=== PATIENT | female | born 1935 | race Caucasian/White ===

== ENCOUNTER 2016-08-20 12:55 | Inpatient (IN) | payer MEDICARE, MEDICAID ==
[2016-08-20] MEDS ORDERED: Albuterol/Ipratropium 3.0-0.5 MG/3 ML Neb Soln NEB ONE (13:11)
[2016-08-20] MEDS ORDERED: cefTRIAXone 1,000 MG in Sodium Chloride 0.9% 50 ML IV SCH ×2 (14:45→16:00)
--- NOTE | 2016-08-20 15:24 | CT ---
INDICATION: Hemoptysis. CT CHEST WITHOUT CONTRAST: Spiral 2.5-mm axial sections were obtained through the chest with sagittal and coronal reconstructions, 08/20/2016, and compared with 11/10/2013. Total Exam DLP = 602.31 mGy-cm. There are areas of consolidating infiltrate in both lower lobes at the lung base on the left and somewhat cranial to the lung base on the right, slightly more prominent consolidation is seen in the left lower lobe. Both areas may represent areas of pneumonia with some atelectasis and possibly some fibrosis also. Additionally, changes are seen in the lingula which may be on the basis of fibrosis and/or minimal patchy pneumonia and linear atelectasis. Probable fibrotic changes are suggested in the posterior upper lobes bilaterally. Areas of pleural thickening are noted with some calcification suggested, which may be on the basis of asbestosis. The heart is enlarged compared with the previous examination and is enlarged significantly at this time. Mediastinal lymphadenopathy is present and perhaps slightly more prominent than on the previous study, which would be compatible with pneumonia. The aorta is calcified partly. Aortic valve calcifications are suggested. Renal cortical scarring is noted. Gravel or cost-ci-qkssxby bile is suggested in the gallbladder. No definite bowel obstruction was seen. Calcifications are noted in the abdominal aorta and splenic artery. IMPRESSION: 1. Bilateral pneumonia with minimal pleural reaction, most prominent in the lower lobes and especially at the left lower lobe. Follow-up to clearing recommended. Areas of scarring are also suggested scattered about the lungs. This appearance may be on the basis of aspiration pneumonia. 2. ASHD with cardiomegaly with increased size of the heart compared with 2013. 3. ASD. 4. Renal cortical scarring. 5. 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 Report was given in person to Dr. Chen at 1435 hours, 08/20/2016. [facility]
[2016-08-20] MEDS: Azithromycin 500 MG in Sodium Chloride 0.9% 250 ML IV SCH (15:26)
--- NOTE | 2016-08-20 15:29 | EDM.PDOC ---
ED HISTORY OF PRESENT ILLNESS - General Stated Complaint: ABDOMINAL PAIN Time Seen by Provider: 08/20/16 13:06 Source: Reports: skilled nursing records History Limitations: Reports: Altered mental status - History of Present Illness INITIAL COMMENTS - FREE TEXT/NARRATIVE: Patient is a 80 [facility] who [facility] and her Oxygen saturations dropped to the mid 80's percentage. She was started on Oxygen and she was sent to the ED by ambulance for further evaluation. She is confused and she thought she threw up the blood rather than coughed it up. She complains of no pain. 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 - Related Data Allergies/ADRs: Allergies Allergy/AdvReac Type Severity Reaction Status Date / Time No Known Allergies Allergy Verified 05/07/15 13:29 Home Meds: Home Meds Acetaminophen [Tylenol Extra Strength] 500 mg PO BID 05/07/15 [History] Ipratropium/Albuterol Sulfate [Iprat-Albut 0.5-3(2.5) MG/3 ML] 3 ml IH BID 05/07 [History] Ipratropium/Albuterol Sulfate [Iprat-Albut 0.5-3(2.5) MG/3 ML] 3 ml IH Q4H PRN 05/07/15 [History] Acetaminophen 650 mg PO Q4HR PRN 08/20/16 [History] Past Medical History Cardiovascular History: Reports: High cholesterol, Hypertension Respiratory History: Reports: Asthma Musculoskeletal History: Reports: Osteoarthritis, Other (see below) Other Musculoskeletal History: CHRONIC SHOULDER PAIN Neurological History: Reports: Other (see below) Other Neuro History: RECORDS 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 Psychiatric History: Reports: Other (see below) Other Psychiatric History: MAJOR DEPRESSIVE DISORDER - Infectious Disease History Infectious Disease History: Reports: Other (see below) Other Infectious Disease History: HAS HX OF SEPSIS. - Past Surgical History Head Surgeries/Procedures: Reports: None HEENT Surgical History: Reports: None Cardiovascular Surgical History: Reports: None Respiratory Surgical History: Reports: None GI Surgical History: Reports: None Female Surgical History: Reports: None Endocrine Surgical History: Reports: None Neurological Surgical History: Reports: None Musculoskeletal Surgical History: Reports: None Oncologic Surgical History: Reports: None Dermatological Surgical History: Reports: None Social & Family History - Family History Other Oncologic Family History: Father had an unknown type of cancer - Tobacco Use Smoking Status *Q: Never Smoker Second Hand Smoke Exposure: No - Alcohol Use Days Per Week of Alcohol Use: 4 Number of Drinks Per Day: 1 Total Drinks Per Week: 4 - Recreational Drug Use Recreational Drug Use: No ED ROS GENERAL - Review of Systems Review Of Systems: See Below Constitutional: Reports: no symptoms HEENT: Reports: No symptoms Respiratory: Reports: Shortness of Breath, Cough, Hemoptysis Cardiovascular: Reports: No symptoms GI/Abdominal: Reports: No symptoms : Reports: no symptoms Musculoskeletal: Reports: no symptoms Skin: Reports: no symptoms Neurological: Reports: No Symptoms Hematologic/Lymphatic: Reports: no symptoms Immunologic: Reports: no symptoms ED EXAM, GENERAL - Physical Exam Exam: See Below Exam Limited By: Altered mental status General Appearance: mild distress Eye Exam: bilateral eye: EOMI, normal fundi, normal inspection, PERRL Ears: normal external exam, normal canal, hearing grossly normal, normal TMs Ear Exam: bilateral ear: auricle normal, canal normal, TM normal Nose: normal inspection, normal mucosa, no blood Throat/Mouth: Normal inspection, Normal lips, Normal teeth, Normal gums, Normal oropharynx, Normal voice, No airway compromise Head: atraumatic, normocephalic Neck: normal inspection, supple, non-tender, full range of motion Respiratory/Chest: rales (Bibasilar rales and rhonchi) Cardiovascular: normal peripheral pulses, regular rate, rhythm, no edema, no gallop, no JVD, no murmur, no rub GI/Abdominal: normal bowel sounds, soft, non tender, no organomegaly, no distention, no abnormal bruit, no mass Extremities: normal inspection Neurological: alert, confused Psychiatric: normal affect, normal mood Skin Exam: Warm, Dry, Intact Lymphatic: no adenopathy (CT scan of chest per radiology shows bibasilar pneumonia and asbestosis.) EKG INTERPRETATION EKG Date: 08/20/16 Rhythm: NSR [place]: other (Left anterior fascicular block) P-wave: present QRS: normal ST-T: normal QT: normal Comparison: NA - no prior EKG Course - Vital Signs Text/Narrative:: Uneventful ED course. She was comfortable with the Oxygen on and she responded to a Duoneb. Once the results came back, she was started on the antibiotics after blood cultures were drawn and she was accepted to Dr. Irene. Departure - Departure Time of Disposition: 15:44 Disposition: Admitted As Inpatient 67 Condition: fair Clinical Impression: CAP (community acquired pneumonia)
[2016-08-20] MEDS ORDERED: metroNIDAZOLE/Normal Saline 500 MG in Premix Bag 1 BAG IV SCH (15:30)
[2016-08-20] MEDS ORDERED: cefTRIAXone 2 GM in Sodium Chloride 0.9% 100 ML IV SCH (16:00)
[2016-08-20] MEDS: cefTRIAXone 2 GM in Sodium Chloride 0.9% 100 ML IV SCH (16:34)
[2016-08-20] MEDS: metroNIDAZOLE/Normal Saline 500 MG in Premix Bag 1 BAG IV SCH (17:28)
[2016-08-20] MEDS ORDERED: Sodium Chloride 0.9% 250 ML IV SCH (17:30)
[2016-08-20] MEDS: methylPREDNISolone Sodium Succinate 125 MG/2 ML SDV IVPUSH SCH (19:56)
[2016-08-20] MEDS: Carboxymethylcellulose Sodium 0.5% Ophth Soln 15 ML Bottle EYEBOTH SCH (19:59)
[2016-08-20] MEDS: traMADol 50 MG Tab PO SCH (20:00)
[2016-08-20] MEDS: Sodium Chloride 0.9% 1,000 ML IV SCH (20:00)
[2016-08-20] MEDS ORDERED: Albuterol/Ipratropium 3.0-0.5 MG/3 ML Neb Soln INH SCH (21:00)
[2016-08-21] MEDS: metroNIDAZOLE/Normal Saline 500 MG in Premix Bag 1 BAG IV SCH ×3 (00:04→17:13)
[2016-08-21] MEDS: methylPREDNISolone Sodium Succinate 125 MG/2 ML SDV IVPUSH SCH ×3 (03:54→19:51)
[2016-08-21] MEDS: Albuterol/Ipratropium 3.0-0.5 MG/3 ML Neb Soln INH SCH ×4 (08:49→20:26)
[2016-08-21] MEDS: Enoxaparin 40 MG/0.4 ML Syringe SUBCUT SCH (10:05)
[2016-08-21] MEDS: Carboxymethylcellulose Sodium 0.5% Ophth Soln 15 ML Bottle EYEBOTH SCH ×2 (10:06→20:26)
[2016-08-21] MEDS: FLUoxetine 10 MG Cap PO SCH (10:06)
[2016-08-21] MEDS: Metoprolol Succinate 50 MG Tab.ER PO SCH (10:07)
[2016-08-21] MEDS: traMADol 50 MG Tab PO SCH ×3 (10:09→20:25)
[2016-08-21] MEDS: Sodium Chloride 0.9% 1,000 ML IV SCH (11:35)
--- NOTE | 2016-08-21 12:35 | PN ---
DATE SEEN: 08/21/2016 SUBJECTIVE: This 80-year-old female is seen today for followup of her pneumonia and exacerbation of chronic obstructive pulmonary disease with bronchospasm along with hypoxemia, depression, hypertension, and osteoarthritis. She is somewhat better today. Her oxygen requirements have increased, but she says she is coughing more; it seems to be a bit looser and she has not had a fever. She has had no vomiting, no diarrhea, no further hemoptysis, awaiting the results of her cultures. She denies any headache or blurred vision. She says she was able to eat breakfast. No abdominal pains or other difficulties have been noted. MEDICATIONS: Reviewed. ALLERGIES: Reviewed. OBJECTIVE: GENERAL: She appears to be in no acute distress. VITAL SIGNS: Afebrile. Blood pressure 134/62, pulse is 85, weight is 212.3 pounds, and O2 saturation is 90% on 5 L. HEENT: Unchanged. Mucous membranes are pink and moist. There is no jugular venous distention. CHEST: Reveal expiratory wheezes scattered throughout both lung alex. No active rales could be heard, but it is difficult because of the other adventitial sounds. No tachypnea. CARDIOVASCULAR: Exam reveals a normal S1, S2 without murmur, rub, or gallop. ABDOMEN: Quite obese, but otherwise unremarkable without tenderness, organomegaly, or masses. EXTREMITIES: Without clubbing, just a trace edema was noted about the ankles. LABORATORY DATA: Lab today revealed a hemoglobin of 11.7. Her white count is improved to 34,300. She still has a left shift with 96 segs. No bands, 4 lymphocytes. INR was 1.1. PTT was 32.7. Platelets were 393,000. IMPRESSION: 1. Pneumonia with exacerbation of chronic obstructive pulmonary disease and bronchospasm associated with hypoxia. 2. Mild intellectual disabilities. 3. Hypertension, under good control. 4. Osteoarthritis. 5. History of depression. PLAN: We will check a urinalysis and continue her IV antibiotics along with IV steroids and aggressive nebulizer treatments to help improve bronchospasm. We will continue to follow her white count, electrolytes; and adjust from there. /[id number] WM/MODL
--- NOTE | 2016-08-21 12:47 | HP ---
ADMISSION DATE: 08/20/2016 CHIEF COMPLAINT: Marked increase in shortness of breath with cough, leukocytosis, and pneumonia on CT scan. HISTORY OF PRESENT ILLNESS: This patient is a 80-year-old female with a history of mild intellectual disability, mild depression, and remote history of asthma, who was admitted after being seen in the emergency room with the above chief complaint. Apparently, she began feeling ill yesterday [place] living, contacted their local provider, and she was started on cefdinir but they noticed no improvement. She became more congested, developed more cough, and then began coughing up some bloody sputum. They became concerned and contacted the local provider, who recommended evaluation in the emergency room. She was seen, found to have a marked leukocytosis, and a CT scan of her chest revealed bibasilar pneumonia and also possibly in the right middle lobe. For that reason, she was admitted for more aggressive therapy. The patient herself has said she has had no fever. She denies any actual chest pain. She does admit to some shortness of breath and significant dyspnea on exertion. There has been no vomiting. She has had no melena, hematochezia, hematemesis, and denies any hematuria or dysuria. No previous history of bleeding disorder. MEDICATIONS: She does take DuoNebs p.r.n. for intermittent wheezing. Her other medicines include cefdinir 300 mg b.i.d., fluoxetine 10 mg daily, metoprolol succinate 50 mg daily, and tramadol 50 mg t.i.d. for arthritis pain. She has p.r.n. guaifenesin syrup and uses Refresh eye drops b.i.d. She has some capsaicin cream that she applies to her knees t.i.d. and Tylenol p.r.n. ALLERGIES: None known. SOCIAL HISTORY: She does not smoke nor use alcohol. PAST MEDICAL HISTORY: Somewhat difficult to ascertain. The patient cannot remember much, although she said she has had bilateral cataract extractions. Asked about any other operations and she said she was not sure. Her old charts mention the possibility of a T and A as a child and an appendectomy with possible ovarian cystectomy a number of years ago. FAMILY HISTORY: Could not be obtained as she did not remember. REVIEW OF SYSTEMS: Full review of systems was discussed. Other than that mentioned above, she denies any ear pain or sore throat. She has had no headache or blurred vision. Again, no chest pain has been noted. She has had no previous history of cardiac disease. Denies any melena or hematochezia and denies any nausea or vomiting. No other GI symptoms other than her knees bothering her. She has no other complaints. PHYSICAL EXAMINATION: GENERAL: She appears to be in no acute distress. VITAL SIGNS: Afebrile. Weight was 210.4 pounds, blood pressure 109/53, pulse was 78 and regular, respirations were 22, and somewhat labored. Oxygen saturation was 93% on 3 L. HEENT: Reveals the head to be normocephalic and atraumatic. Pupils are round and reactive well to light and accommodation. Extraocular movements were intact. She has some mild exophthalmos. Intraocular lenses were noted bilaterally. Nasal passages were open without discharge. Pharynx and palate were negative. Thyroid was not enlarged. Carotid pulses strong and equal without bruits. CHEST: Revealed expiratory wheezes scattered throughout both lung alex with prolonged expiratory phase. Coarse rhonchi were noted throughout, but there were no retractions, just mild tachypnea. CARDIOVASCULAR: Revealed a normal S1 and S2 without murmur, rub, or gallop. BREASTS: Without masses or tenderness. ABDOMEN: Quite obese, but soft. No specific point tenderness. No rebound or rigidity. Bowel sounds were normal. EXTREMITIES: Without clubbing. She has a trace edema about her ankles. There is some fusiform swelling of the knees without effusion, erythema, or warmth. No significant Herendeen's or Carlos's nodes were noted. Peripheral pulses were present and equal. NEUROLOGICAL: Her speech is a bit slow and she has difficulty answering some questions as she "cannot remember." She moves all extremities for me, but she says she is too weak to stand. LABORATORY DATA: CBC revealed a hemoglobin of 11.9, hematocrit of 34.6, white count of 49,400. She had 91 segs, 6 bands, and 3 lymphocytes. Sodium 133, potassium of 4.7, CO2 of 33, creatinine 0.9, BUN of 27. Random glucose 173. Slight elevation in AST at 34, but ALT was normal as was alkaline phosphatase. Her troponin was normal at 0.03. CT scan as noted above with areas of consolidating infiltrate in both lower lobes at the lung base and on the left somewhat cranial to the left lung base and on the right slightly more prominent consolidation was noted than on the left. Mediastinal lymphadenopathy was also noted with some cardiomegaly and degenerative changes in the thoracic spine. IMPRESSION: 1. Bibasilar pneumonia with an exacerbation of her chronic obstructive pulmonary disease and bronchospasm. 2. Mild intellectual disabilities. 3. Osteoarthritis. 4. History of depression. PLAN: The patient will be admitted. Cultures have been obtained and we have already started ceftriaxone and azithromycin. I have added metronidazole in case we are dealing with an aspiration problem and we will aggressively treat with bronchodilator therapy along with steroids, watch her oxygen saturations closely and supplement as needed, and proceed from there. /[id number] /KIMBERLY
[2016-08-21] MEDS: Azithromycin 500 MG in Sodium Chloride 0.9% 250 ML IV SCH (15:31)
[2016-08-21] MEDS: cefTRIAXone 2 GM in Sodium Chloride 0.9% 100 ML IV SCH (18:15)
[2016-08-22] MEDS: metroNIDAZOLE/Normal Saline 500 MG in Premix Bag 1 BAG IV SCH ×3 (00:06→16:11)
[2016-08-22] MEDS: methylPREDNISolone Sodium Succinate 125 MG/2 ML SDV IVPUSH SCH ×3 (03:45→19:27)
[2016-08-22] MEDS: Sodium Chloride 0.9% 1,000 ML IV SCH ×2 (04:06→21:50)
[2016-08-22] MEDS: Albuterol/Ipratropium 3.0-0.5 MG/3 ML Neb Soln INH SCH ×4 (07:31→20:32)
[2016-08-22] MEDS: Metoprolol Succinate 50 MG Tab.ER PO SCH (08:17)
[2016-08-22] MEDS: FLUoxetine 10 MG Cap PO SCH (08:18)
[2016-08-22] MEDS: Enoxaparin 40 MG/0.4 ML Syringe SUBCUT SCH (08:18)
[2016-08-22] MEDS: traMADol 50 MG Tab PO SCH ×3 (08:18→20:34)
[2016-08-22] MEDS: Carboxymethylcellulose Sodium 0.5% Ophth Soln 15 ML Bottle EYEBOTH SCH ×2 (08:19→20:31)
--- NOTE | 2016-08-22 12:50 | PN ---
DATE SEEN: 08/22/2016 SUBJECTIVE: This 80-year-old female was seen today for a followup of her pneumonia and asthma. She said she feels better today. She is stronger, and she says she is hungry. She continues to cough, but it has been fairly nonproductive. She has had no vomiting, diarrhea, dysuria, or hematuria. She denies any sore throat or ear pain. No other complaints or concerns. OBJECTIVE: GENERAL: She appears to be comfortable, sitting in her wheelchair. She is afebrile. VITAL SIGNS: Blood pressure 140/68, pulse is 80 and regular, respirations were 24, oxygen saturation is 93% to 95% on 4 L. HEENT: Unremarkable, except for the exophthalmos. NECK: Thyroid was not enlarged. Carotid pulses were strong and equal without bruits. CHEST: Revealed expiratory wheezes scattered throughout both lung alex without rales or rhonchi. CARDIOVASCULAR: Revealed a normal S1 and S2. I was unable to appreciate any murmur, rub, or gallop. ABDOMEN: Soft, obese, but nontender without organomegaly or masses. Bowel sounds are normal. EXTREMITIES: Without clubbing, just a trace edema. No ulcerations or areas of breakdown. NEUROLOGIC: She was completely intact. IMPRESSION: 1. Bibasilar pneumonia with an exacerbation of her bronchospasm and resultant hypoxemia. 2. Mild intellectual disability. 3. History of depression and osteoarthritis. PLAN: At this point, we will make no changes. We will continue the IV steroids along with her antibiotic therapy and aggressive nebulizer treatments. If she continues to make progress, we may be able to switch her over to oral steroids tomorrow and oral antibiotics. Continue her nebulizer treatments and increase her activity. Follow from there. /[id number] /APRILL
[2016-08-22] MEDS: Azithromycin 500 MG in Sodium Chloride 0.9% 250 ML IV SCH (14:20)
[2016-08-22] MEDS: cefTRIAXone 2 GM in Sodium Chloride 0.9% 100 ML IV SCH (17:24)
[2016-08-22] MEDS: Sodium Chloride 0.9% 10 ML Syringe FLUSH PRN (19:30)
[2016-08-23] MEDS: metroNIDAZOLE/Normal Saline 500 MG in Premix Bag 1 BAG IV SCH ×4 (01:10→23:54)
[2016-08-23] MEDS: methylPREDNISolone Sodium Succinate 125 MG/2 ML SDV IVPUSH SCH ×2 (03:38→16:34)
[2016-08-23] MEDS: Albuterol/Ipratropium 3.0-0.5 MG/3 ML Neb Soln INH SCH ×4 (06:52→20:24)
--- NOTE | 2016-08-23 07:57 | PCM.PN ---
- General Info Date of Service: 08/23/16 Admission Dx/Problem (Free Text): The nurses report this patient has increased respiratory rate and difficulty breathing. The patient states that she's feeling better she denies shortness of breath. She states she has a productive cough. She denies chest pain, leg swelling, fevers, chills. It is noted that she's had quite a weight gain since she's been in here. - Patient Data Vitals - most recent: Last Vital Signs Temp 98.1 F 08/23/16 03:45 Pulse 80 08/23/16 03:45 Resp 18 08/23/16 03:45 BP 137/77 08/23/16 03:45 Pulse Ox 93 L 08/23/16 03:45 Weight - most recent: 222 lb 9.6 oz I&O - last 24 hours: Intake & Output 08/22/16 08/23/16 08/23/16 22:59 06:59 14:59 Intake Total 789 639 Balance 789 639 Med Orders - Current: Current Medications Albuterol/Ipratropium (Duoneb 3.0-0.5 Mg/3 Ml) 3 ml INH QIDRT [facility] Last Admin: 08/23/16 06:52 Dose: 3 ml Artificial Tears (Refresh Tears 0.5%) 0 ml EYEBOTH BID [facility] Last Admin: 08/22/16 20:31 Dose: 1 drop Enoxaparin Sodium (Lovenox) 40 mg SUBCUT DAILY [facility] Last Admin: 08/22/16 08:18 Dose: 40 mg Fluoxetine HCl (Prozac) 10 mg PO DAILY [facility] Last Admin: 08/22/16 08:18 Dose: 10 mg Azithromycin 500 mg/ Sodium (Chloride) 250 mls @ 250 mls/hr IV Q24H [facility] Last Admin: 08/22/16 14:20 Dose: 250 mls/hr Ceftriaxone Sodium 2 gm/ (Sodium Chloride) 100 mls @ 100 mls/hr IV Q24H [facility] Last Admin: 08/22/16 17:24 Dose: 100 mls/hr Metronidazole 500 mg/ Premix 100 mls @ 100 mls/hr IV Q8H [facility] Last Admin: 08/23/16 01:10 Dose: 100 mls/hr Sodium Chloride (Normal Saline) 1,000 mls @ 75 mls/hr IV ASDIRECTED [facility] Last Admin: 08/22/16 21:50 Dose: 75 mls/hr Methylprednisolone Sodium Succinate (Solu-Medrol) 125 mg IVPUSH Q8H [facility] Last Admin: 08/23/16 03:38 Dose: 125 mg Metoprolol Succinate (Toprol Xl) 50 mg PO DAILY [facility] Last Admin: 08/22/16 08:17 Dose: 50 mg Sodium Chloride (Saline Flush) 10 ml FLUSH ASDIRECTED PRN PRN Reason: Keep Vein Open Last Admin: 08/22/16 19:30 Dose: 10 ml Tramadol HCl (Ultram) 50 mg PO TID [facility] Last Admin: 08/22/16 20:34 Dose: 50 mg Discontinued Medications Albuterol/Ipratropium (Duoneb 3.0-0.5 Mg/3 Ml) 3 ml NEB ONETIME ONE Stop: 08/20/16 13:12 Last Admin: 08/20/16 13:25 Dose: 3 ml Albuterol/Ipratropium (Duoneb 3.0-0.5 Mg/3 Ml) 3 ml INH QID [facility] Last Admin: 08/20/16 21:24 Dose: 3 ml Ceftriaxone Sodium 1,000 mg/ (Sodium Chloride) 50 mls @ 100 mls/hr IV Q24H [facility] Sodium Chloride (Normal Saline) 250 mls @ 100 mls/hr IV ASDIRECTED [facility] Stop: 08/20/16 19:59 Last Admin: 08/20/16 17:28 Dose: 100 mls/hr - Exam General: alert, oriented, cooperative Neck: supple Lungs: Normal respiratory effort, Crackles, Wheezing. No: Rales, Rhonchi Cardiovascular: Regular Rate, Regular Rhythm, No Murmurs Abdomen: bowel sounds present, soft, no tenderness, no distension Extremities: no edema Psy/Mental Status: alert, normal affect, normal mood - Problem List & Annotations (1) Pneumonia SNOMED Code(s): 871911154 Code(s): J18.9 - PNEUMONIA, UNSPECIFIED ORGANISM Status: Acute Current Visit: Yes (2) Hypoxia SNOMED Code(s): 436607631, 258441699 Code(s): R09.02 - HYPOXEMIA Status: Acute Current Visit: Yes (3) Palliative care patient SNOMED Code(s): 860233444 Code(s): Z51.5 - ENCOUNTER FOR PALLIATIVE CARE Status: Acute Current Visit: Yes - Problem List Review Problem List Initiated/Reviewed/Updated: Yes - Plan Plan:: 1. DC IV fluids and saline locked IV. 2. Up in the chair. 3. 20 mg of IV Lasix x1. 4. Continue daily weights. 5. Change Solu-Medrol to every 12 hours. 6. Continue Rocephin, Zithromax and, metronidazole. 7. CBC in the a.m.
[2016-08-23] MEDS ORDERED: Furosemide 20 MG/2 ML VIAL IVPUSH ONE (08:15)
[2016-08-23] MEDS: FLUoxetine 10 MG Cap PO SCH (09:29)
[2016-08-23] MEDS: Enoxaparin 40 MG/0.4 ML Syringe SUBCUT SCH (09:29)
[2016-08-23] MEDS: Carboxymethylcellulose Sodium 0.5% Ophth Soln 15 ML Bottle EYEBOTH SCH ×2 (09:29→20:24)
[2016-08-23] MEDS: Metoprolol Succinate 50 MG Tab.ER PO SCH (09:30)
[2016-08-23] MEDS: traMADol 50 MG Tab PO SCH ×3 (09:32→20:24)
[2016-08-23] MEDS: Azithromycin 500 MG in Sodium Chloride 0.9% 250 ML IV SCH (14:09)
[2016-08-23] MEDS: Sodium Chloride 0.9% 10 ML Syringe FLUSH PRN (14:25)
[2016-08-23] MEDS: cefTRIAXone 2 GM in Sodium Chloride 0.9% 100 ML IV SCH (18:05)
[2016-08-24] MEDS: methylPREDNISolone Sodium Succinate 125 MG/2 ML SDV IVPUSH SCH (04:08)
[2016-08-24] MEDS: Albuterol/Ipratropium 3.0-0.5 MG/3 ML Neb Soln INH SCH ×4 (06:47→20:42)
[2016-08-24] MEDS: metroNIDAZOLE/Normal Saline 500 MG in Premix Bag 1 BAG IV SCH ×3 (07:58→23:51)
--- NOTE | 2016-08-24 08:16 | PCM.PN ---
- General Info Date of Service: 08/24/16 Admission Dx/Problem (Free Text): Patient states she's feeling well. She denies shortness of breath, fevers, chills, nasal congestion, sore throat, chest pain. She says she does have a cough is productive and has very little appetite. She is drinking fluids okay. - Patient Data Vitals - most recent: Last Vital Signs Temp 98.3 F 08/24/16 04:00 Pulse 82 08/24/16 04:00 Resp 20 08/24/16 04:00 BP 125/60 08/24/16 04:00 Pulse Ox 96 08/24/16 04:00 Weight - most recent: 222 lb 9.6 oz I&O - last 24 hours: Intake & Output 08/23/16 08/24/16 08/24/16 22:59 06:59 14:59 Intake Total 135 100 Balance 135 100 Lab Results last 24 hrs: Laboratory Results - last 24 hr 08/24/16 08/24/16 Range/Units 06:20 06:20 WBC 14.8 H (4.5-12.0) X10-3/uL RBC 3.90 (3.23-5.20) x10(6)uL Hgb 11.4 L (11.5-15.5) g/dL Hct 35.1 (30.0-51.3) % MCV 90.0 (80-96) fL MCH 29.2 (27.7-33.6) pg MCHC 32.4 (32.2-35.4) g/dL RDW 15.7 H (11.5-15.5) % Plt Count 378 H (125-369) X10(3)uL MPV 7.3 L (7.4-10.4) fL Add Manual Diff Yes Neutrophils % (Manual) 92 H (46-82) % Lymphocytes % (Manual) 4 L (13-37) % Monocytes % (Manual) 4 (4-12) % Sodium 138 (135-145) mmol/L Potassium 4.3 (3.5-5.3) mmol/L Chloride 100 (100-110) mmol/L Carbon Dioxide 31 H (23-29) mmol/L BUN 29 H (8-23) mg/dL Creatinine 0.7 (0.6-1.3) mg/dL Est Cr Clr Drug Dosing 53.91 mL/min Estimated GFR (MDRD) > 60 (>60) BUN/Creatinine Ratio 41.4 H (9-20) Glucose 147 H (80-116) mg/dL Calcium 8.5 L (8.6-10.2) mg/dL Total Bilirubin 0.2 (0.1-1.3) mg/dL AST 226 H D (5-27) IU/L ALT 105 H D (14-26) IU/L Alkaline Phosphatase 133 H (56-112) IU/L Total Protein 6.9 (6.0-8.0) g/dL Albumin 2.8 L (3.2-4.6) g/dL Globulin 4.1 g/dL Albumin/Globulin Ratio 0.7 Med Orders - Current: Current Medications Albuterol/Ipratropium (Duoneb 3.0-0.5 Mg/3 Ml) 3 ml INH QIDRT [facility] Last Admin: 08/24/16 06:47 Dose: 3 ml Artificial Tears (Refresh Tears 0.5%) 0 ml EYEBOTH BID [facility] Last Admin: 08/23/16 20:24 Dose: 1 drop Enoxaparin Sodium (Lovenox) 40 mg SUBCUT DAILY [facility] Last Admin: 08/23/16 09:29 Dose: 40 mg Fluoxetine HCl (Prozac) 10 mg PO DAILY [facility] Last Admin: 08/23/16 09:29 Dose: 10 mg Azithromycin 500 mg/ Sodium (Chloride) 250 mls @ 250 mls/hr IV Q24H [facility] Last Admin: 08/23/16 14:09 Dose: 250 mls/hr Ceftriaxone Sodium 2 gm/ (Sodium Chloride) 100 mls @ 100 mls/hr IV Q24H [facility] Last Admin: 08/23/16 18:05 Dose: 100 mls/hr Metronidazole 500 mg/ Premix 100 mls @ 100 mls/hr IV Q8H [facility] Last Admin: 08/24/16 07:58 Dose: 100 mls/hr Methylprednisolone Sodium Succinate (Solu-Medrol) 125 mg IVPUSH DAILY [facility] Metoprolol Succinate (Toprol Xl) 50 mg PO DAILY [facility] Last Admin: 08/23/16 09:30 Dose: 50 mg Tramadol HCl (Ultram) 50 mg PO TID [facility] Last Admin: 05/05/17 20:24 Dose: 50 mg Discontinued Medications Albuterol/Ipratropium (Duoneb 3.0-0.5 Mg/3 Ml) 3 ml NEB ONETIME ONE Stop: 08/20/16 13:12 Last Admin: 08/20/16 13:25 Dose: 3 ml Albuterol/Ipratropium (Duoneb 3.0-0.5 Mg/3 Ml) 3 ml INH QID [facility] Last Admin: 08/20/16 21:24 Dose: 3 ml Furosemide (Lasix) 20 mg IVPUSH NOW ONE Stop: 08/23/16 08:16 Last Admin: 08/23/16 09:23 Dose: 20 mg Ceftriaxone Sodium 1,000 mg/ (Sodium Chloride) 50 mls @ 100 mls/hr IV Q24H [facility] Sodium Chloride (Normal Saline) 250 mls @ 100 mls/hr IV ASDIRECTED [facility] Stop: 08/20/16 19:59 Last Admin: 08/20/16 17:28 Dose: 100 mls/hr Sodium Chloride (Normal Saline) 1,000 mls @ 75 mls/hr IV ASDIRECTED [facility] Last Admin: 08/22/16 21:50 Dose: 75 mls/hr Methylprednisolone Sodium Succinate (Solu-Medrol) 125 mg IVPUSH Q8H [facility] Last Admin: 08/23/16 03:38 Dose: 125 mg Methylprednisolone Sodium Succinate (Solu-Medrol) 125 mg IVPUSH Q12H [facility] Last Admin: 08/24/16 04:08 Dose: 125 mg Sodium Chloride (Saline Flush) 10 ml FLUSH ASDIRECTED PRN PRN Reason: Keep Vein Open Last Admin: 08/23/16 14:25 Dose: 10 ml - Exam General: alert, oriented, cooperative Neck: supple Lungs: Normal respiratory effort, Rhonchi, Wheezing Cardiovascular: Regular Rate, Regular Rhythm, No Murmurs Extremities: no edema - Problem List & Annotations (1) Pneumonia SNOMED Code(s): 620712490 Code(s): J18.9 - PNEUMONIA, UNSPECIFIED ORGANISM Status: Acute Current Visit: Yes Qualifiers: Pneumonia type: due to unspecified organism Laterality: bilateral (2) Hypoxia SNOMED Code(s): 599605534, 539228348 Code(s): R09.02 - HYPOXEMIA Status: Acute Current Visit: Yes (3) Palliative care patient SNOMED Code(s): 459332642 Code(s): Z51.5 - ENCOUNTER FOR PALLIATIVE CARE Status: Acute Current Visit: Yes (4) Elevated LFTs SNOMED Code(s): 153842091 Code(s): R94.5 - ABNORMAL RESULTS OF LIVER FUNCTION STUDIES Status: Acute Current Visit: Yes - Problem List Review Problem List Initiated/Reviewed/Updated: Yes - My Orders Last 24 Hours: My Active Orders 08/23/16 07:58 Consult to Occupational Therapy [OT Evaluation and Treatment] [CONS] Routine Consult to Physical Therapy [PT Evaluation and Treatment] [CONS] Routine 08/23/16 07:59 Up to Chair [RC] ASDIRECTED Convert IV to Saline Lock [OM.PC] Routine 08/23/16 17:48 Convert IV to Saline Lock [OM.PC] Routine 08/24/16 09:00 methylPREDNISolone Sod Succ [Solu-MEDROL] 125 mg IVPUSH DAILY - Plan Plan:: 1. continue IV antibiotics as prescribed. 2. Recheck CBC and Chem-12 in a.m. 3. LFTs are up to pursue this with any testing at this time. Most likely infectious related. 4. Decrease Solu-Medrol 125 mg to every 24 hours.
[2016-08-24] MEDS: Carboxymethylcellulose Sodium 0.5% Ophth Soln 15 ML Bottle EYEBOTH SCH ×2 (08:36→20:49)
[2016-08-24] MEDS: Enoxaparin 40 MG/0.4 ML Syringe SUBCUT SCH (08:36)
[2016-08-24] MEDS: traMADol 50 MG Tab PO SCH ×3 (08:36→20:49)
[2016-08-24] MEDS: Metoprolol Succinate 50 MG Tab.ER PO SCH (08:36)
[2016-08-24] MEDS: FLUoxetine 10 MG Cap PO SCH (08:36)
[2016-08-24] MEDS: Azithromycin 500 MG in Sodium Chloride 0.9% 250 ML IV SCH (14:31)
[2016-08-24] MEDS: cefTRIAXone 2 GM in Sodium Chloride 0.9% 100 ML IV SCH (17:19)
[2016-08-25] MEDS ORDERED: methylPREDNISolone Sodium Succinate 125 MG/2 ML SDV IVPUSH SCH (06:00)
[2016-08-25] MEDS: Albuterol/Ipratropium 3.0-0.5 MG/3 ML Neb Soln INH SCH ×4 (07:33→20:55)
[2016-08-25] MEDS: metroNIDAZOLE/Normal Saline 500 MG in Premix Bag 1 BAG IV SCH (08:13)
--- NOTE | 2016-08-25 08:45 | PCM.PN ---
- General Info Date of Service: 08/25/16 Admission Dx/Problem (Free Text): The patient has no concerns today. She denies shortness of breath, fevers, chills and states her cough is much improved. She states she feels like she's back to normal. - Patient Data Vitals - most recent: Last Vital Signs Temp 97.6 F 08/25/16 04:00 Pulse 66 08/25/16 07:33 Resp 19 08/25/16 04:00 BP 135/68 08/25/16 04:00 Pulse Ox 96 08/25/16 07:33 Weight - most recent: 222 lb 9.6 oz I&O - last 24 hours: Intake & Output 08/24/16 08/25/16 08/25/16 22:59 06:59 14:59 Intake Total 750 Balance 750 Lab Results last 24 hrs: Laboratory Results - last 24 hr 08/25/16 08/25/16 Range/Units 06:30 06:30 WBC 18.8 H (4.5-12.0) X10-3/uL RBC 3.83 (3.23-5.20) x10(6)uL Hgb 11.0 L (11.5-15.5) g/dL Hct 34.4 (30.0-51.3) % MCV 89.9 (80-96) fL MCH 28.8 (27.7-33.6) pg MCHC 32.0 L (32.2-35.4) g/dL RDW 15.5 (11.5-15.5) % Plt Count 322 (125-369) X10(3)uL MPV 7.7 (7.4-10.4) fL Add Manual Diff Yes Neutrophils % (Manual) 88 H (46-82) % Lymphocytes % (Manual) 10 L (13-37) % Monocytes % (Manual) 2 L (4-12) % Sodium 139 (135-145) mmol/L Potassium 4.5 (3.5-5.3) mmol/L Chloride 101 (100-110) mmol/L Carbon Dioxide 34 H (23-29) mmol/L BUN 27 H (8-23) mg/dL Creatinine 0.8 (0.6-1.3) mg/dL Est Cr Clr Drug Dosing 47.17 mL/min Estimated GFR (MDRD) > 60 (>60) BUN/Creatinine Ratio 33.8 H (9-20) Glucose 103 (80-116) mg/dL Calcium 8.4 L (8.6-10.2) mg/dL Total Bilirubin 0.0 L (0.1-1.3) mg/dL AST 75 H D (5-27) IU/L ALT 65 H D (14-26) IU/L Alkaline Phosphatase 107 (56-112) IU/L Total Protein 6.3 (6.0-8.0) g/dL Albumin 2.6 L (3.2-4.6) g/dL Globulin 3.7 g/dL Albumin/Globulin Ratio 0.7 Med Orders - Current: Current Medications Albuterol/Ipratropium (Duoneb 3.0-0.5 Mg/3 Ml) 3 ml INH QIDRT [facility] Last Admin: 08/25/16 07:33 Dose: 3 ml Artificial Tears (Refresh Tears 0.5%) 0 ml EYEBOTH BID [facility] Last Admin: 08/24/16 20:49 Dose: 1 drop Enoxaparin Sodium (Lovenox) 40 mg SUBCUT DAILY [facility] Last Admin: 08/24/16 08:36 Dose: 40 mg Fluoxetine HCl (Prozac) 10 mg PO DAILY [facility] Last Admin: 08/24/16 08:36 Dose: 10 mg Azithromycin 500 mg/ Sodium (Chloride) 250 mls @ 250 mls/hr IV Q24H [facility] Last Admin: 08/24/16 14:31 Dose: 250 mls/hr Ceftriaxone Sodium 2 gm/ (Sodium Chloride) 100 mls @ 100 mls/hr IV Q24H [facility] Last Admin: 08/24/16 17:19 Dose: 100 mls/hr Metronidazole 500 mg/ Premix 100 mls @ 100 mls/hr IV Q8H [facility] Last Admin: 08/25/16 08:13 Dose: 100 mls/hr Methylprednisolone Sodium Succinate (Solu-Medrol) 125 mg IVPUSH DAILY@0600 [facility] Last Admin: 08/25/16 05:18 Dose: 125 mg Metoprolol Succinate (Toprol Xl) 50 mg PO DAILY [facility] Last Admin: 08/24/16 08:36 Dose: 50 mg Tramadol HCl (Ultram) 50 mg PO TID [facility] Last Admin: 08/24/16 20:49 Dose: 50 mg Discontinued Medications Albuterol/Ipratropium (Duoneb 3.0-0.5 Mg/3 Ml) 3 ml NEB ONETIME ONE Stop: 08/20/16 13:12 Last Admin: 08/20/16 13:25 Dose: 3 ml Albuterol/Ipratropium (Duoneb 3.0-0.5 Mg/3 Ml) 3 ml INH QID [facility] Last Admin: 08/20/16 21:24 Dose: 3 ml Furosemide (Lasix) 20 mg IVPUSH NOW ONE Stop: 08/23/16 08:16 Last Admin: 08/23/16 09:23 Dose: 20 mg Ceftriaxone Sodium 1,000 mg/ (Sodium Chloride) 50 mls @ 100 mls/hr IV Q24H [facility] Sodium Chloride (Normal Saline) 250 mls @ 100 mls/hr IV ASDIRECTED [facility] Stop: 08/20/16 19:59 Last Admin: 08/20/16 17:28 Dose: 100 mls/hr Sodium Chloride (Normal Saline) 1,000 mls @ 75 mls/hr IV ASDIRECTED [facility] Last Admin: 08/22/16 21:50 Dose: 75 mls/hr Methylprednisolone Sodium Succinate (Solu-Medrol) 125 mg IVPUSH Q8H [facility] Last Admin: 08/23/16 03:38 Dose: 125 mg Methylprednisolone Sodium Succinate (Solu-Medrol) 125 mg IVPUSH Q12H [facility] Last Admin: 08/24/16 04:08 Dose: 125 mg Sodium Chloride (Saline Flush) 10 ml FLUSH ASDIRECTED PRN PRN Reason: Keep Vein Open Last Admin: 08/23/16 14:25 Dose: 10 ml - Exam General: alert, oriented, cooperative Neck: supple Lungs: Normal respiratory effort, Wheezing (Mild) Cardiovascular: Regular Rate, Regular Rhythm, No Murmurs Extremities: no edema - Problem List & Annotations (1) Pneumonia SNOMED Code(s): 878794145 Code(s): J18.9 - PNEUMONIA, UNSPECIFIED ORGANISM Status: Acute Current Visit: Yes Qualifiers: Pneumonia type: due to unspecified organism Laterality: bilateral (2) Hypoxia SNOMED Code(s): 824346891, 359156076 Code(s): R09.02 - HYPOXEMIA Status: Acute Current Visit: Yes (3) Palliative care patient SNOMED Code(s): 232216694 Code(s): Z51.5 - ENCOUNTER FOR PALLIATIVE CARE Status: Acute Current Visit: Yes (4) Elevated LFTs SNOMED Code(s): 286533512 Code(s): R94.5 - ABNORMAL RESULTS OF LIVER FUNCTION STUDIES Status: Acute Current Visit: Yes (5) COPD (chronic obstructive pulmonary disease) SNOMED Code(s): 34669057 Code(s): J44.9 - CHRONIC OBSTRUCTIVE PULMONARY DISEASE, UNSPECIFIED Status : Acute Current Visit: Yes - Problem List Review Problem List Initiated/Reviewed/Updated: Yes - My Orders Last 24 Hours: My Active Orders 08/25/16 06:00 methylPREDNISolone Sod Succ [Solu-MEDROL] 125 mg IVPUSH DAILY@0600 - Plan Plan:: 1. White blood cell count went up. Clinically she is improved. This may be due to the steroid. Her differential is improved. So by mouth antibiotics. 2. Stop Solu-Medrol and start prednisone 60 mg a day.
[2016-08-25] MEDS: FLUoxetine 10 MG Cap PO SCH (08:50)
[2016-08-25] MEDS: traMADol 50 MG Tab PO SCH ×3 (08:50→20:57)
[2016-08-25] MEDS: Carboxymethylcellulose Sodium 0.5% Ophth Soln 15 ML Bottle EYEBOTH SCH ×2 (08:50→20:55)
[2016-08-25] MEDS: Metoprolol Succinate 50 MG Tab.ER PO SCH (08:50)
[2016-08-25] MEDS: Enoxaparin 40 MG/0.4 ML Syringe SUBCUT SCH (08:51)
[2016-08-25] MEDS: predniSONE 20 MG Tab PO SCH (09:18)
[2016-08-25] MEDS: Amoxicillin/Clavulanate K 500-125 MG Tab PO SCH ×2 (09:18→16:36)
[2016-08-25] MEDS: Azithromycin 250 MG Tab PO SCH (09:18)
[2016-08-25] MEDS: metroNIDAZOLE 500 MG Tab PO SCH (16:36)
[2016-08-26] MEDS: metroNIDAZOLE 500 MG Tab PO SCH ×2 (00:19→08:37)
[2016-08-26] MEDS: Amoxicillin/Clavulanate K 500-125 MG Tab PO SCH ×2 (01:15→08:37)
[2016-08-26] MEDS: Albuterol/Ipratropium 3.0-0.5 MG/3 ML Neb Soln INH SCH ×2 (07:04→10:54)
[2016-08-26 08:27] VITALS: BP 156/84
--- NOTE | 2016-08-26 08:35 | PCM.PN ---
- General Info Date of Service: 08/26/16 Admission Dx/Problem (Free Text): Patient without complaints. She states she still is a little cough that is improving everyday. She denies chest pain, shortness of breath or leg swelling. She denies fevers or chills. - Patient Data Vitals - most recent: Last Vital Signs Temp 98.3 F 08/26/16 08:27 Pulse 74 08/26/16 07:05 Resp 20 08/26/16 08:27 BP 156/84 H 08/26/16 08:27 Pulse Ox 94 L 08/26/16 08:27 Weight - most recent: 219 lb Lab Results last 24 hrs: Laboratory Results - last 24 hr 08/26/16 08/26/16 Range/Units 06:40 06:40 WBC 17.6 H (4.5-12.0) X10-3/uL RBC 3.80 (3.23-5.20) x10(6)uL Hgb 11.0 L (11.5-15.5) g/dL Hct 33.6 (30.0-51.3) % MCV 88.4 (80-96) fL MCH 28.8 (27.7-33.6) pg MCHC 32.6 (32.2-35.4) g/dL RDW 15.2 (11.5-15.5) % Plt Count 326 (125-369) X10(3)uL MPV 7.5 (7.4-10.4) fL Neut % (Auto) 83.2 H (46-82) % Lymph % (Auto) 7.2 L (13-37) % Angelina % (Auto) 7.7 (4-12) % Eos % (Auto) 0 L (1.0-5.0) % Baso % (Auto) 2 (0-2) % Neut # (Auto) 14.6 H (1.6-8.3) # Lymph # (Auto) 1.3 (0.6-5.0) # Angelina # (Auto) 1.4 H (0.0-1.3) # Eos # (Auto) 0.0 (0.0-0.8) # Baso # (Auto) 0.3 H (0.0-0.2) # Sodium 136 (135-145) mmol/L Potassium 4.3 (3.5-5.3) mmol/L Chloride 96 L D (100-110) mmol/L Carbon Dioxide 35 H (23-29) mmol/L BUN 23 (8-23) mg/dL Creatinine 0.7 (0.6-1.3) mg/dL Est Cr Clr Drug Dosing 53.91 mL/min Estimated GFR (MDRD) > 60 (>60) BUN/Creatinine Ratio 32.9 H (9-20) Glucose 109 (80-116) mg/dL Calcium 8.4 L (8.6-10.2) mg/dL Total Bilirubin 0.3 (0.1-1.3) mg/dL AST 50 H D (5-27) IU/L ALT 52 H D (14-26) IU/L Alkaline Phosphatase 100 (56-112) IU/L Total Protein 6.2 (6.0-8.0) g/dL Albumin 2.6 L (3.2-4.6) g/dL Globulin 3.6 g/dL Albumin/Globulin Ratio 0.7 Med Orders - Current: Current Medications Albuterol/Ipratropium (Duoneb 3.0-0.5 Mg/3 Ml) 3 ml INH QIDRT [facility] Last Admin: 08/26/16 07:04 Dose: 3 ml Amoxicillin/Clavulanate Potassium (Augmentin 500 Mg\125 Mg) 1 tab PO Q8H [facility] Last Admin: 08/26/16 01:15 Dose: 1 tab Artificial Tears (Refresh Tears 0.5%) 0 ml EYEBOTH BID [facility] Last Admin: 08/25/16 20:55 Dose: 1 drop Azithromycin (Zithromax) 250 mg PO DAILY [facility] Last Admin: 08/25/16 09:18 Dose: 250 mg Enoxaparin Sodium (Lovenox) 40 mg SUBCUT DAILY [facility] Last Admin: 08/25/16 08:51 Dose: 40 mg Fluoxetine HCl (Prozac) 10 mg PO DAILY [facility] Last Admin: 08/25/16 08:50 Dose: 10 mg Metoprolol Succinate (Toprol Xl) 50 mg PO DAILY [facility] Last Admin: 08/25/16 08:50 Dose: 50 mg Metronidazole (Flagyl) 500 mg PO Q8H [facility] Last Admin: 08/26/16 00:19 Dose: 500 mg Prednisone (Prednisone) 60 mg PO DAILY [facility] Last Admin: 08/25/16 09:18 Dose: 60 mg Tramadol HCl (Ultram) 50 mg PO TID [facility] Last Admin: 08/25/16 20:57 Dose: 50 mg Discontinued Medications Albuterol/Ipratropium (Duoneb 3.0-0.5 Mg/3 Ml) 3 ml NEB ONETIME ONE Stop: 08/20/16 13:12 Last Admin: 08/20/16 13:25 Dose: 3 ml Albuterol/Ipratropium (Duoneb 3.0-0.5 Mg/3 Ml) 3 ml INH QID [facility] Last Admin: 08/20/16 21:24 Dose: 3 ml Furosemide (Lasix) 20 mg IVPUSH NOW ONE Stop: 08/23/16 08:16 Last Admin: 08/23/16 09:23 Dose: 20 mg Azithromycin 500 mg/ Sodium (Chloride) 250 mls @ 250 mls/hr IV Q24H [facility] Last Admin: 08/24/16 14:31 Dose: 250 mls/hr Ceftriaxone Sodium 1,000 mg/ (Sodium Chloride) 50 mls @ 100 mls/hr IV Q24H [facility] Ceftriaxone Sodium 2 gm/ (Sodium Chloride) 100 mls @ 100 mls/hr IV Q24H [facility] Last Admin: 08/24/16 17:19 Dose: 100 mls/hr Metronidazole 500 mg/ Premix 100 mls @ 100 mls/hr IV Q8H [facility] Last Admin: 08/25/16 08:13 Dose: 100 mls/hr Sodium Chloride (Normal Saline) 250 mls @ 100 mls/hr IV ASDIRECTED [facility] Stop: 08/20/16 19:59 Last Admin: 08/20/16 17:28 Dose: 100 mls/hr Sodium Chloride (Normal Saline) 1,000 mls @ 75 mls/hr IV ASDIRECTED [facility] Last Admin: 08/22/16 21:50 Dose: 75 mls/hr Methylprednisolone Sodium Succinate (Solu-Medrol) 125 mg IVPUSH Q8H [facility] Last Admin: 08/23/16 03:38 Dose: 125 mg Methylprednisolone Sodium Succinate (Solu-Medrol) 125 mg IVPUSH Q12H [facility] Last Admin: 08/24/16 04:08 Dose: 125 mg Methylprednisolone Sodium Succinate (Solu-Medrol) 125 mg IVPUSH DAILY@0600 [facility] Last Admin: 08/25/16 05:18 Dose: 125 mg Sodium Chloride (Saline Flush) 10 ml FLUSH ASDIRECTED PRN PRN Reason: Keep Vein Open Last Admin: 08/23/16 14:25 Dose: 10 ml - Exam General: alert, oriented, cooperative Lungs: Normal respiratory effort, Wheezing (Faint). No: Crackles, Rales, Rhonchi Abdomen: soft, no tenderness - Problem List & Annotations (1) Pneumonia SNOMED Code(s): 432421599 Code(s): J18.9 - PNEUMONIA, UNSPECIFIED ORGANISM Status: Acute Current Visit: Yes Qualifiers: Pneumonia type: due to unspecified organism Laterality: bilateral (2) Hypoxia SNOMED Code(s): 458659274, 353066528 Code(s): R09.02 - HYPOXEMIA Status: Acute Current Visit: Yes (3) Palliative care patient SNOMED Code(s): 808546894 Code(s): Z51.5 - ENCOUNTER FOR PALLIATIVE CARE Status: Acute Current Visit: Yes (4) Elevated LFTs SNOMED Code(s): 294246552 Code(s): R94.5 - ABNORMAL RESULTS OF LIVER FUNCTION STUDIES Status: Acute Current Visit: Yes (5) COPD (chronic obstructive pulmonary disease) SNOMED Code(s): 39721803 Code(s): J44.9 - CHRONIC OBSTRUCTIVE PULMONARY DISEASE, UNSPECIFIED Status : Acute Current Visit: Yes - Problem List Review Problem List Initiated/Reviewed/Updated: Yes - My Orders Last 24 Hours: My Active Orders 08/25/16 09:00 Amoxicillin/Clavulanate K [Augmentin 500 MG\125 MG] 1 tab PO Q8H Azithromycin [Zithromax] 250 mg PO DAILY predniSONE 60 mg PO DAILY 08/25/16 16:00 metroNIDAZOLE [Flagyl] 500 mg PO Q8H - Plan Plan:: 1. discharge back to [facility] by mouth antibiotics and by mouth prednisone taper.
[2016-08-26] MEDS: Enoxaparin 40 MG/0.4 ML Syringe SUBCUT SCH (08:37)
[2016-08-26] MEDS: predniSONE 20 MG Tab PO SCH (08:38)
[2016-08-26] MEDS: FLUoxetine 10 MG Cap PO SCH (08:38)
[2016-08-26] MEDS: Metoprolol Succinate 50 MG Tab.ER PO SCH (08:39)
[2016-08-26] MEDS: Carboxymethylcellulose Sodium 0.5% Ophth Soln 15 ML Bottle EYEBOTH SCH (08:39)
[2016-08-26] MEDS: Azithromycin 250 MG Tab PO SCH (08:40)
[2016-08-26] MEDS: traMADol 50 MG Tab PO SCH (08:43)
--- NOTE | 2016-08-26 08:48 | PCM.DCSUM1 ---
Discharge Summary - Hospital Course Free Text/Narrative:: Hospital course-patient was admitted and placed on Rocephin, Zithromax and metronidazole because of the possibility of aspiration. Her white count was very elevated and can't remain high although the differential improve. The patient had a productive cough of she's here. She did not complain of shortness of breath. She has some fevers that dissipated nicely. She is also put on Solu-Medrol because of wheezing and history of COPD 125 mg every 8 hours. Patient's white count was still high and became slightly down and clinically the patient improved. We slowly backed off of Solu-Medrol to have down to once a day and switch her to by mouth antibiotics. She continue nebulizer treatments. She did have some hypoxia and was on O2 nasal cannula. Blood cultures were negative. Brief History: Patient is a 80 [facility] old woman [facility] who [facility]ing [facility] blood at the [facility] and her Oxygen saturations dropped to the mid 80's percentage. She was started on Oxygen and she was sent to the ED by ambulance for further evaluation. She is confused and she thought she threw up the blood rather than coughed it up. She complains of no pain. She was found to have a bilateral lower lobe pneumonia on CT. - Discharge Data Discharge Date: 08/26/16 Discharge Disposition: DC/Tfer to [facility] Condition: Fair - Discharge Diagnosis/Problem(s) (1) Pneumonia SNOMED Code(s): 517777259 ICD Code: J18.9 - PNEUMONIA, UNSPECIFIED ORGANISM Status: Acute Current Visit: Yes Qualifiers: Pneumonia type: due to unspecified organism Laterality: bilateral (2) Hypoxia SNOMED Code(s): 614715008, 975831596 ICD Code: R09.02 - HYPOXEMIA Status: Acute Current Visit: Yes (3) Palliative care patient SNOMED Code(s): 267787484 ICD Code: Z51.5 - ENCOUNTER FOR PALLIATIVE CARE Status: Acute Current Visit: Yes (4) Elevated LFTs SNOMED Code(s): 509467204 ICD Code: R94.5 - ABNORMAL RESULTS OF LIVER FUNCTION STUDIES Status: Acute Current Visit: Yes (5) COPD (chronic obstructive pulmonary disease) SNOMED Code(s): 71759236 ICD Code: J44.9 - CHRONIC OBSTRUCTIVE PULMONARY DISEASE, UNSPECIFIED Status : Acute Current Visit: Yes - Patient Summary/Data Consults: Consultations 08/23/16 07:58 Consult to Occupational Therapy [OT Evaluation and Treatment] [CONS] Routine Please Evaluate and Treat. OT Reason for Consult: Strengthening This query below is only for informational purposes and is not editable. Admission Diagnosis/Problem: Pneumonia Consult to Physical Therapy [PT Evaluation and Treatment] [CONS] Routine Please Evaluate and Treat. PT Reason for Consult: Strengthening This query below is only for informational purposes and is not editable. Admission Diagnosis/Problem: Pneumonia - Patient Instructions Diet: Regular Diet as Tolerated Activity: As Tolerated Driving: Do Not Drive Showering/Bathing: May Shower Notify Provider of: Fever, Increased Pain, Nausea and/or Vomiting Other/Special Instructions: 1. Transferred to [facility] - Discharge Plan Prescriptions/Med Rec: Amoxicillin/Clavulanate K [Augmentin 500-125 MG] 1 tab PO TID #15 tablet Azithromycin [Zithromax] 250 mg PO DAILY #3 tablet Prednisone [IJD: predniSONE] 20 mg PO ASDIRECTED #12 tablet metroNIDAZOLE [Flagyl] 500 mg PO Q8H #15 tablet Home Medications: Home Meds Acetaminophen [Tylenol Extra Strength] 500 mg PO BID 05/07/15 [History] Ipratropium/Albuterol Sulfate [Iprat-Albut 0.5-3(2.5) MG/3 ML] 3 ml IH ASDIRECTED PRN 05/07/15 [History] Ipratropium/Albuterol Sulfate [Iprat-Albut 0.5-3(2.5) MG/3 ML] 3 ml IH QID 05/07 [History] Acetaminophen 650 mg PO Q4H PRN 08/20/16 [History] Capsaicin 1 applic TP TID 08/20/16 [History] Carboxymethylcellulose Sodium [Refresh Tears] 1 drop EYEBOTH BID 08/20/16 [ History] FLUoxetine [PROzac] 10 mg PO DAILY 08/20/16 [History] Loperamide [Imodium] 2 mg PO Q4H PRN 08/20/16 [History] Metoprolol Succinate [Toprol XL] 50 mg PO DAILY 08/20/16 [History] Nystatin 1 each PO BID PRN 08/20/16 [History] guaiFENesin [Tussin] 10 ml PO Q4H PRN 08/20/16 [History] traMADol [Ultram] 50 mg PO TID 08/20/16 [History] Amoxicillin/Clavulanate K [Augmentin 500-125 MG] 1 tab PO TID #15 tablet [Rx] Azithromycin [Zithromax] 250 mg PO DAILY #3 tablet 08/26/16 [Rx] Prednisone [IJD: predniSONE] 20 mg PO ASDIRECTED #12 tablet 08/26/16 [Rx] metroNIDAZOLE [Flagyl] 500 mg PO Q8H #15 tablet 08/26/16 [Rx] Forms: ED Department Discharge Referrals: Darren Oro MD [Primary Care Provider] - - Discharge Summary/Plan Comment DC Time >30 min.: No - Patient Data Vitals - Most Recent: Last Vital Signs Temp 98.3 F 08/26/16 08:27 Pulse 89 08/26/16 08:39 Resp 20 08/26/16 08:27 BP 156/84 H 08/26/16 08:39 Pulse Ox 94 L 08/26/16 08:27 Weight - Most Recent: 219 lb Lab Results - Last 24 hrs: Laboratory Results - last 24 hr 08/26/16 08/26/16 Range/Units 06:40 06:40 WBC 17.6 H (4.5-12.0) X10-3/uL RBC 3.80 (3.23-5.20) x10(6)uL Hgb 11.0 L (11.5-15.5) g/dL Hct 33.6 (30.0-51.3) % MCV 88.4 (80-96) fL MCH 28.8 (27.7-33.6) pg MCHC 32.6 (32.2-35.4) g/dL RDW 15.2 (11.5-15.5) % Plt Count 326 (125-369) X10(3)uL MPV 7.5 (7.4-10.4) fL Neut % (Auto) 83.2 H (46-82) % Lymph % (Auto) 7.2 L (13-37) % Gregg % (Auto) 7.7 (4-12) % Eos % (Auto) 0 L (1.0-5.0) % Baso % (Auto) 2 (0-2) % Neut # (Auto) 14.6 H (1.6-8.3) # Lymph # (Auto) 1.3 (0.6-5.0) # Gregg # (Auto) 1.4 H (0.0-1.3) # Eos # (Auto) 0.0 (0.0-0.8) # Baso # (Auto) 0.3 H (0.0-0.2) # Sodium 136 (135-145) mmol/L Potassium 4.3 (3.5-5.3) mmol/L Chloride 96 L D (100-110) mmol/L Carbon Dioxide 35 H (23-29) mmol/L BUN 23 (8-23) mg/dL Creatinine 0.7 (0.6-1.3) mg/dL Est Cr Clr Drug Dosing 53.91 mL/min Estimated GFR (MDRD) > 60 (>60) BUN/Creatinine Ratio 32.9 H (9-20) Glucose 109 (80-116) mg/dL Calcium 8.4 L (8.6-10.2) mg/dL Total Bilirubin 0.3 (0.1-1.3) mg/dL AST 50 H D (5-27) IU/L ALT 52 H D (14-26) IU/L Alkaline Phosphatase 100 (56-112) IU/L Total Protein 6.2 (6.0-8.0) g/dL Albumin 2.6 L (3.2-4.6) g/dL Globulin 3.6 g/dL Albumin/Globulin Ratio 0.7 Med Orders - Current: Current Medications Albuterol/Ipratropium (Duoneb 3.0-0.5 Mg/3 Ml) 3 ml INH QIDRT [facility] Last Admin: 08/26/16 07:04 Dose: 3 ml Amoxicillin/Clavulanate Potassium (Augmentin 500 Mg\125 Mg) 1 tab PO Q8H [facility] Last Admin: 08/26/16 08:37 Dose: 1 tab Artificial Tears (Refresh Tears 0.5%) 0 ml EYEBOTH BID [facility] Last Admin: 08/26/16 08:39 Dose: 1 drop Azithromycin (Zithromax) 250 mg PO DAILY [facility] Last Admin: 08/26/16 08:40 Dose: 250 mg Enoxaparin Sodium (Lovenox) 40 mg SUBCUT DAILY [facility] Last Admin: 08/26/16 08:37 Dose: 40 mg Fluoxetine HCl (Prozac) 10 mg PO DAILY [facility] Last Admin: 08/26/16 08:38 Dose: 10 mg Metoprolol Succinate (Toprol Xl) 50 mg PO DAILY [facility] Last Admin: 08/26/16 08:39 Dose: 50 mg Metronidazole (Flagyl) 500 mg PO Q8H [facility] Last Admin: 08/26/16 08:37 Dose: 500 mg Prednisone (Prednisone) 60 mg PO DAILY [facility] Last Admin: 08/26/16 08:38 Dose: 60 mg Tramadol HCl (Ultram) 50 mg PO TID [facility] Last Admin: 08/26/16 08:43 Dose: 50 mg Discontinued Medications Albuterol/Ipratropium (Duoneb 3.0-0.5 Mg/3 Ml) 3 ml NEB ONETIME ONE Stop: 08/20/16 13:12 Last Admin: 08/20/16 13:25 Dose: 3 ml Albuterol/Ipratropium (Duoneb 3.0-0.5 Mg/3 Ml) 3 ml INH QID [facility] Last Admin: 08/20/16 21:24 Dose: 3 ml Furosemide (Lasix) 20 mg IVPUSH NOW ONE Stop: 08/23/16 08:16 Last Admin: 08/23/16 09:23 Dose: 20 mg Azithromycin 500 mg/ Sodium (Chloride) 250 mls @ 250 mls/hr IV Q24H [facility] Last Admin: 08/24/16 14:31 Dose: 250 mls/hr Ceftriaxone Sodium 1,000 mg/ (Sodium Chloride) 50 mls @ 100 mls/hr IV Q24H [facility] Ceftriaxone Sodium 2 gm/ (Sodium Chloride) 100 mls @ 100 mls/hr IV Q24H [facility] Last Admin: 08/24/16 17:19 Dose: 100 mls/hr Metronidazole 500 mg/ Premix 100 mls @ 100 mls/hr IV Q8H [facility] Last Admin: 08/25/16 08:13 Dose: 100 mls/hr Sodium Chloride (Normal Saline) 250 mls @ 100 mls/hr IV ASDIRECTED [facility] Stop: 08/20/16 19:59 Last Admin: 08/20/16 17:28 Dose: 100 mls/hr Sodium Chloride (Normal Saline) 1,000 mls @ 75 mls/hr IV ASDIRECTED [facility] Last Admin: 08/22/16 21:50 Dose: 75 mls/hr Methylprednisolone Sodium Succinate (Solu-Medrol) 125 mg IVPUSH Q8H [facility] Last Admin: 08/23/16 03:38 Dose: 125 mg Methylprednisolone Sodium Succinate (Solu-Medrol) 125 mg IVPUSH Q12H [facility] Last Admin: 08/24/16 04:08 Dose: 125 mg Methylprednisolone Sodium Succinate (Solu-Medrol) 125 mg IVPUSH DAILY@0600 [facility] Last Admin: 08/25/16 05:18 Dose: 125 mg Sodium Chloride (Saline Flush) 10 ml FLUSH ASDIRECTED PRN PRN Reason: Keep Vein Open Last Admin: 08/23/16 14:25 Dose: 10 ml *Q Meaningful Use (DIS) - VTE *Q VTE Criteria *Q: VTE Mechanical Contraindications *Q: At Risk for Falls - Stroke *Q Stroke Criteria *Q: - AMI *Q AMI Criteria *Q:
== END 2016-08-26 11:15 | DRG 190 ==
LOC: FB.ED 12:55 → FB.MS 16:27
PROVIDERS: ADMIT Family Medicine; ATTEND Family Medicine
DX: J44.0 Chronic obstructive pulmonary disease with (acute) lower respiratory infection (principal); J69.0 Pneumonitis due to inhalation of food and vomit; J44.1 Chronic obstructive pulmonary disease with (acute) exacerbation; I10 Essential (primary) hypertension; Z66 Do not resuscitate; F70 Mild intellectual disabilities; J98.01 Acute bronchospasm; R09.02 Hypoxemia; Z51.5 Encounter for palliative care; R94.5 Abnormal results of liver function studies; F32.9 Major depressive disorder, single episode, unspecified; M19.90 Unspecified osteoarthritis, unspecified site; Z79.52 Long term (current) use of systemic steroids
CPT/HCPCS: 36415; 71250; 80053; 84484; 85025; 87040 ×2; 93005; 94664; 96365; 99285; J0456; J7050; J7620; 80048; 81001; 85027; 85610; 85730; 94640-76; 96367; 97161-GP; 97165-GO; A9270-GY; J0696; J1650; J1940; J2930; J7030; J7040

== ENCOUNTER 2018-04-23 13:16 | Inpatient (IN) | payer MEDICARE, MEDICAID ==
[2018-04-23] MEDS ORDERED: Magnesium Hydroxide 400 MG/5 ML Susp 30 ML Cup PO PRN (14:14)
[2018-04-23] MEDS ORDERED: Acetaminophen 325 MG Tab PO PRN (14:14)
[2018-04-23] MEDS ORDERED: guaiFENesin 100 MG/5 ML Soln 5 ML UD Cup PO PRN (14:14)
[2018-04-23] MEDS ORDERED: Bisacodyl 10 MG Supp RECTAL PRN (14:14)
[2018-04-23] MEDS ORDERED: Loperamide 2 MG Cap PO PRN (14:14)
[2018-04-23] MEDS: Sodium Chloride 0.9% 10 ML Syringe FLUSH PRN ×3 (14:30→20:18)
[2018-04-23] MEDS: Levofloxacin/Dextrose 5%-Water 750 MG in Premix Bag 1 BAG IV SCH (14:35)
[2018-04-23] MEDS ORDERED: Nystatin Topical Powder 15 GM Bottle TOP PRN (14:45)
[2018-04-23] MEDS: Enoxaparin 30 MG/0.3 ML Syringe SUBCUT SCH (15:16)
[2018-04-23] MEDS: Albuterol/Ipratropium 3.0-0.5 MG/3 ML Neb Soln NEB SCH ×2 (15:22→20:18)
[2018-04-23] MEDS ORDERED: Furosemide 20 MG/2 ML VIAL IVPUSH ONE (19:35)
--- NOTE | 2018-04-23 19:41 | PCM.HP ---
H&P History of Present Illness - General Date of Service: 04/23/18 Admit Problem/Dx: Admission Diagnosis/Problem Admission Diagnosis/Problem Pneumonia Source of Information: Patient, Old Records History Limitations: Reports: No Limitations - History of Present Illness Initial Comments - Free Text/Narative: Marissa is a 82-year-old female was brought in directly from [facility] because of shortness of breath, cough and fever. Chest x-ray was nondiagnostic but she had a white cell count and it was entertained that she might have pneumonia. She complains of being sick since Friday with cough and wheezing and low-grade fever. She has a history of asthma,( ?COPD), as well as hypertension and depression that are previously stable. She denies any chest pain but complains of leg swelling and redness of both feet. Marissa stays at home alone. She has mild cognitive dysfunction making history taking difficult. - Related Data Allergies/Adverse Reactions: Allergies Allergy/AdvReac Type Severity Reaction Status Date / Time No Known Allergies Allergy Verified 04/23/18 13:49 Home Medications: Home Meds Acetaminophen [Tylenol Extra Strength] 500 mg PO BID 05/07/15 [History] Ipratropium/Albuterol Sulfate [Iprat-Albut 0.5-3(2.5) MG/3 ML] 3 ml IH ASDIRECTED PRN 05/07/15 [History] Acetaminophen 650 mg PO Q4H PRN 08/20/16 [History] Carboxymethylcellulose Sodium [Refresh Tears] 1 drop EYEBOTH BID 08/20/16 [ History] FLUoxetine [PROzac] 10 mg PO DAILY 08/20/16 [History] Loperamide [Imodium] 2 mg PO Q4H PRN 08/20/16 [History] Metoprolol Succinate [Toprol XL] 50 mg PO DAILY 08/20/16 [History] Nystatin 1 each PO BID PRN 08/20/16 [History] guaiFENesin [Tussin] 10 ml PO Q4H PRN 08/20/16 [History] traMADol [Ultram] 50 mg PO TID 08/20/16 [History] Bisacodyl [Dulcolax] 10 mg RC DAILY PRN 04/23/18 [History] Capsaicin [Zostrix 0.025% Crm] 1 applic TP TID 04/23/18 [History] Lisinopril 10 mg PO DAILY 04/23/18 [History] Magnesium Hydroxide [Milk of Magnesia] 30 ml PO DAILY PRN 04/23/18 [History] Sennosides/Docusate Sodium [Senna-S] 2 tab PO DAILY 04/23/18 [History] Past Medical History Cardiovascular History: Reports: High Cholesterol, Hypertension, Syncope Other Cardiovascular History: Hyperlipidemia Respiratory History: Reports: Asthma, COPD, Pneumonia, Recurrent, SOB Genitourinary History: Reports: Urinary Incontinence Musculoskeletal History: Reports: Osteoarthritis Other Musculoskeletal History: CHRONIC SHOULDER PAIN, abnormality of gait, nonambulatory Neurological History: Reports: Other (See Below) Other Neuro History: Moderate intellectual disabilities Psychiatric History: Reports: Depression, Other (See Below) Other Psychiatric History: Moderate intellectual disabilities Hematologic History: Reports: Anemia Immunologic History: Reports: Other (See Below) Other Immunologic History: hx of sepsis Oncologic (Cancer) History: Reports: Other (See Below) Other Oncologic History: Basal cell carcinoma of left forehead - Infectious Disease History Infectious Disease History: Reports: Other (See Below) Other Infectious Disease History: HAS HX OF SEPSIS. - Past Surgical History Head Surgeries/Procedures: Reports: None HEENT Surgical History: Reports: None GI Surgical History: Reports: None Endocrine Surgical History: Reports: None Oncologic Surgical History: Reports: None Dermatological Surgical History: Reports: None Social & Family History - Family History Other Oncologic Family History: Father had an unknown type of cancer - Tobacco Use Smoking Status *Q: Never Smoker Second Hand Smoke Exposure: No - Caffeine Use Caffeine Use: Reports: Coffee - Recreational Drug Use Recreational Drug Use: No H&P Review of Systems - Review of Systems: Review Of Systems: ROS reveals no pertinent complaints other than HPI. Exam - Exam Exam: See Below - Vital Signs Vital Signs: Last Vital Signs Temp 98.3 F 04/23/18 16:10 Pulse 87 04/23/18 16:10 Resp 22 H 04/23/18 16:10 BP 141/80 H 04/23/18 16:10 Pulse Ox 92 L 04/23/18 16:10 Weight: 106.821 kg - Exam Quality Assessment: Supplemental Oxygen General: Alert, Oriented HEENT: PERRLA, Conjunctiva Clear Neck: Supple, Trachea Midline, +2 Carotid Pulse wo Bruit. No: JVD Lungs: Decreased Breath Sounds, Rhonchi, Wheezing Cardiovascular: Regular Rate GI/Abdominal Exam: Normal Bowel Sounds (Female) Exam: Deferred Rectal (Female) Exam: Deferred Back Exam: Normal Inspection Extremities: Pedal Edema, Redness Skin: Warm Neurological: Cranial Nerves Intact Neuro Extensive - Mental Status: Oriented x3 Neuro Extensive - Motor, Sensory, Reflexes: CN II-XII Intact Psychiatric: Alert, Normal Affect - Patient Data Lab Results Last 24 hrs: Laboratory Results - last 24 hr 04/23/18 Range/Units 14:50 NT-Pro-B Natriuret Pep 1499 H* (<=450) pg/mL EKG INTERPRETATION Rhythm: A-Flutter - Problem List (1) CAP (community acquired pneumonia) SNOMED Code(s): 992746969 ICD Code: J18.9 - PNEUMONIA, UNSPECIFIED ORGANISM Status: Acute Current Visit: No (2) Asthma SNOMED Code(s): 124426962 ICD Code: J45.909 - UNSPECIFIED ASTHMA, UNCOMPLICATED Status: Acute Current Visit: Yes Qualifiers: Asthma severity: moderate (3) Atrial flutter SNOMED Code(s): 6513920 ICD Code: I48.92 - UNSPECIFIED ATRIAL FLUTTER Status: Acute Current Visit : Yes (4) HTN (hypertension) SNOMED Code(s): 66912443 ICD Code: I10 - ESSENTIAL (PRIMARY) HYPERTENSION Status: Acute Current Visit: Yes Qualifiers: Hypertension type: essential hypertension Qualified Code(s): I10 - Essential (primary) hypertension (5) MDD (major depressive disorder) SNOMED Code(s): 219190398 ICD Code: F32.9 - MAJOR DEPRESSIVE DISORDER, SINGLE EPISODE, UNSPECIFIED Status: Chronic Current Visit: Yes Qualifiers: Major depression recurrence: recurrent Active/Remission status: currently active (6) Palliative care patient SNOMED Code(s): 951701135 ICD Code: Z51.5 - ENCOUNTER FOR PALLIATIVE CARE Status: Acute Current Visit: Yes (7) Edema SNOMED Code(s): 583149040, 821249737 ICD Code: R60.9 - EDEMA, UNSPECIFIED Status: Acute Current Visit: Yes Qualifiers: Edema type: unspecified Qualified Code(s): R60.9 - Edema, unspecified (8) Moderate major depression SNOMED Code(s): 813473 ICD Code: F32.1 - MAJOR DEPRESSIVE DISORDER, SINGLE EPISODE, MODERATE Status: Chronic Current Visit: No Problem List Initiated/Reviewed/Updated: Yes Orders Last 24hrs: Active Orders 24 hr Category Date Time Status Patient Status [ADT] Routine ADT 04/23/18 14:11 Active Height and Weight [RC] 06 Care 04/23/18 14:11 Active Intake and Output [RC] 06,14,22 Care 04/23/18 14:12 Active Oxygen Therapy [RC] PRN Care 04/23/18 14:11 Active RT Aerosol Therapy [RC] ASDIRECTED Care 04/23/18 14:13 Active VTE/DVT Education [RC] Per Unit Routine Care 04/23/18 14:11 Active Vital Signs [RC] 00,04,08,12,16,20 Care 04/23/18 14:11 Active Regular Diet [DIET] Diet 04/23/18 Breakfast Active Echo Comp wo Cont [US] Timed Exams 04/24/18 08:00 Ordered CBC WITH AUTO DIFF [HEME] AM Lab 04/24/18 05:11 Ordered COMPREHENSIVE METABOLIC PN,CMP [CHEM] AM Lab 04/24/18 05:11 Ordered CULTURE BLOOD [BC] Urgent Lab 04/23/18 14:50 Received CULTURE BLOOD [BC] Urgent Lab 04/23/18 14:55 Received TROPONIN I [CHEM] AM Lab 04/24/18 05:11 Ordered Acetaminophen [Tylenol Extra Strength] Med 04/23/18 21:00 Active 500 mg PO BID Acetaminophen [Tylenol] Med 04/23/18 14:14 Active 650 mg PO Q4H PRN Albuterol/Ipratropium [DuoNeb 3.0-0.5 MG/3 ML] Med 04/23/18 16:00 Active 3 ml NEB QIDRT Bisacodyl [Dulcolax] Med 04/23/18 14:14 Active 10 mg RECTAL DAILY PRN Carboxymethylcellulose Sodium [Refresh Tears 0.5%] Med 04/23/18 21:00 Active 0 ml EYEBOTH BID Docusate Sodium/Sennosides [Senna Plus] Med 04/24/18 09:00 Active 2 tab PO DAILY Enoxaparin [Lovenox] Med 04/23/18 14:15 Active 30 mg SUBCUT Q24H FLUoxetine [PROzac] Med 04/24/18 09:00 Active 10 mg PO DAILY Furosemide [Lasix] Med 04/23/18 19:35 Once 20 mg IVPUSH NOW ONE Levofloxacin/Dextrose 5%-Water [Levaquin in D5W 750 MG/ Med 04/23/18 14:15 Active 150 ML] 750 mg Premix Bag 1 bag IV Q24H Lisinopril [Prinivil] Med 04/24/18 09:00 Active 10 mg PO DAILY Loperamide [Imodium] Med 04/23/18 14:14 Active 2 mg PO Q4H PRN Magnesium Hydroxide [Milk of Magnesia] Med 04/23/18 14:14 Active 30 ml PO DAILY PRN Metoprolol Succinate [Toprol XL] Med 04/24/18 09:00 Active 50 mg PO DAILY Nystatin [Nystop] Med 04/23/18 14:45 Active 0 gm TOP BID PRN Sodium Chloride 0.9% [Saline Flush] Med 04/23/18 14:11 Active 10 ml FLUSH ASDIRECTED PRN guaiFENesin [Robitussin] Med 04/23/18 14:14 Active 200 mg PO Q4H PRN methylPREDNISolone Sod Succ [Solu-MEDROL] Med 04/23/18 19:45 Ordered 125 mg IVPUSH Q8H traMADol [Ultram] Med 04/23/18 21:00 Active 50 mg PO TID Blood Culture x2 Reflex Set [OM.PC] Urgent Oth 04/23/18 14:11 Ordered Peripheral IV Insertion Adult [OM.PC] Routine Oth 04/23/18 14:11 Ordered Resuscitation Status Routine Resus Stat 04/23/18 14:11 Ordered EKG 12 Lead [EK] AM Ther 04/24/18 05:11 Ordered Medication Orders Acetaminophen (Tylenol Extra Strength) 500 mg PO BID [place] Acetaminophen (Tylenol) 650 mg PO Q4H PRN PRN Reason: Pain Albuterol/Ipratropium (Duoneb 3.0-0.5 Mg/3 Ml) 3 ml NEB QIDRT [facility] Last Admin: 04/23/18 15:22 Dose: 3 ml Artificial Tears (Refresh Tears 0.5%) 0 ml EYEBOTH BID [facility] Bisacodyl (Dulcolax) 10 mg RECTAL DAILY PRN PRN Reason: Constipation Enoxaparin Sodium (Lovenox) 30 mg SUBCUT Q24H [facility] Last Admin: 04/23/18 15:16 Dose: 30 mg Fluoxetine HCl (Prozac) 10 mg PO DAILY [facility] Furosemide (Lasix) 20 mg IVPUSH NOW ONE Stop: 04/23/18 19:36 Guaifenesin (Robitussin) 200 mg PO Q4H PRN PRN Reason: Cough Levofloxacin/Dextrose 750 mg/ (Premix) 150 mls @ 100 mls/hr IV Q24H [facility] Last Admin: 04/23/18 14:35 Dose: 100 mls/hr Lisinopril (Prinivil) 10 mg PO DAILY [facility] Loperamide HCl (Imodium) 2 mg PO Q4H PRN PRN Reason: Diarrhea Magnesium Hydroxide (Milk Of Magnesia) 30 ml PO DAILY PRN PRN Reason: Constipation Methylprednisolone Sodium Succinate (Solu-Medrol) 125 mg IVPUSH Q8H [facility] Metoprolol Succinate (Toprol Xl) 50 mg PO DAILY [facility] Nystatin (Nystop) 0 gm TOP BID PRN PRN Reason: YEAST Senna/Docusate Sodium (Senna Plus) 2 tab PO DAILY [facility] Sodium Chloride (Saline Flush) 10 ml FLUSH ASDIRECTED PRN PRN Reason: Keep Vein Open Last Admin: 04/23/18 16:27 Dose: 10 ml Admin: 04/23/18 14:30 Dose: 10 ml Tramadol HCl (Ultram) 50 mg PO TID [facility] Assessment/Plan Comment:: I have chosen Levaquin, at a dose of 750 mg daily. I will give her a one-time dose of Lasix. An echocardiogram will be done tomorrow. Blood cultures have been sent, and I believe she will probably need physical and occupational therapy later. I'll give him Solu-Medrol and SVNs for asthma exacerbation. My understanding that FLU A and B was negative in the clinic, and we will also be waiting for the official report of chest x-ray from [facility]
[2018-04-23] MEDS: methylPREDNISolone Sodium Succinate 125 MG/2 ML SDV IVPUSH SCH (20:17)
[2018-04-23] MEDS: Acetaminophen 500 MG Tab PO SCH (20:18)
[2018-04-23] MEDS: traMADol 50 MG Tab PO SCH (20:23)
[2018-04-23] MEDS: Carboxymethylcellulose Sodium 0.5% Ophth Soln 15 ML Bottle EYEBOTH SCH (20:24)
[2018-04-24] MEDS: methylPREDNISolone Sodium Succinate 125 MG/2 ML SDV IVPUSH SCH ×3 (03:38→20:58)
[2018-04-24] MEDS: Sodium Chloride 0.9% 10 ML Syringe FLUSH PRN ×4 (03:39→20:58)
[2018-04-24] MEDS: Albuterol/Ipratropium 3.0-0.5 MG/3 ML Neb Soln NEB SCH ×5 (04:32→20:52)
[2018-04-24] MEDS: FLUoxetine 10 MG Cap PO SCH (08:49)
[2018-04-24] MEDS: Carboxymethylcellulose Sodium 0.5% Ophth Soln 15 ML Bottle EYEBOTH SCH ×2 (08:49→20:50)
[2018-04-24] MEDS: Lisinopril 10 MG Tab PO SCH (08:49)
[2018-04-24] MEDS: Acetaminophen 500 MG Tab PO SCH ×2 (08:50→20:50)
[2018-04-24] MEDS: traMADol 50 MG Tab PO SCH ×3 (08:50→21:05)
--- NOTE | 2018-04-24 10:53 | PN ---
DATE SEEN: 04/24/2018 HISTORY: Ms. Salas is an 82-year-old resident of [facility] with a history of mild mental retardation, chronic congestive heart failure, COPD with asthma, osteoarthritis, and depression. She was admitted from the clinic at [facility] because of shortness of breath and suspicion for pneumonia. The patient is not able to give a detailed history. However, does state that she has had some breathing problems and they are improved this morning. The patient is examined in her hospital bed and is deemed to be a fairly poor historian. PHYSICAL EXAMINATION: GENERAL: She is awake and alert. She is in good spirits. She answers questions easily. VITAL SIGNS: Blood pressure 140/73, pulse 92 and regular, respirations 22, O2 saturation 92% on 1.5 L of nasal cannula oxygen, temperature 97.6. SKIN: Anicteric. Warm, dry. There is no rash. No bruising. No sign of trauma. HEENT: Shows her mouth to be dry. LUNGS: Expiratory wheezes bilaterally. She has very poor breath sounds. There are rales at both bases. HEART: Regular. No murmur or gallop is heard. ABDOMEN: Obese, soft. Normal bowel sounds. Nontender. EXTREMITIES: Show pronation deformities of both ankles, leathery thickened skin of the lower legs and feet, 2+ minimally pitting edema to the mid tibias and generalized extremity weakness. The patient does not walk and relies on a wheelchair. LABORATORY DATA: White count 19,400, hemoglobin 13.6. Electrolytes normal. BUN 16, creatinine 0.9, glucose 173. BNP 1499. Chest x-ray, not currently available to me. ASSESSMENT: An 82-year-old woman with: 1. Likely bilateral pneumonia. 2. Acute on chronic congestive heart failure. 3. Mental retardation. 4. Depression. 5. Asthma with a history of chronic obstructive pulmonary disease. PLAN: We will continue to diurese her. Continue her current Levaquin antibiotic. We will switch her from IV methylprednisolone to oral steroid. Repeat chest x-ray in a.m. I anticipate another 48 to 72 hours of acute hospital stay with plans to return to [facility] upon discharge. We will continue to provide palliative care measures for her underlying COPD, mental retardation, depression, and longstanding immobility. /[id number] JOSELO/KIMBERLY
[2018-04-24] MEDS: Metoprolol Succinate 50 MG Tab.ER PO SCH (11:14)
[2018-04-24] MEDS: Furosemide 40 MG Tab PO SCH ×2 (11:16→17:32)
[2018-04-24] MEDS: Enoxaparin 30 MG/0.3 ML Syringe SUBCUT SCH (13:55)
[2018-04-24] MEDS: Levofloxacin/Dextrose 5%-Water 750 MG in Premix Bag 1 BAG IV SCH (14:07)
[2018-04-25] MEDS: Sodium Chloride 0.9% 10 ML Syringe FLUSH PRN (03:11)
[2018-04-25] MEDS: methylPREDNISolone Sodium Succinate 125 MG/2 ML SDV IVPUSH SCH (03:11)
[2018-04-25] MEDS: Albuterol/Ipratropium 3.0-0.5 MG/3 ML Neb Soln NEB SCH ×4 (06:42→21:24)
[2018-04-25] MEDS: Furosemide 40 MG Tab PO SCH ×2 (08:58→14:21)
[2018-04-25] MEDS: FLUoxetine 10 MG Cap PO SCH (08:59)
[2018-04-25] MEDS: Carboxymethylcellulose Sodium 0.5% Ophth Soln 15 ML Bottle EYEBOTH SCH ×2 (08:59→21:25)
[2018-04-25] MEDS: Lisinopril 10 MG Tab PO SCH (08:59)
[2018-04-25] MEDS ORDERED: predniSONE 10 MG Tab PO SCH (09:00)
[2018-04-25] MEDS: Acetaminophen 500 MG Tab PO SCH ×2 (09:00→21:25)
[2018-04-25] MEDS: Metoprolol Succinate 50 MG Tab.ER PO SCH (09:00)
[2018-04-25] MEDS: traMADol 50 MG Tab PO SCH ×3 (09:06→21:25)
[2018-04-25] MEDS: Amoxicillin/Clavulanate K 875-125 MG Tab PO SCH ×2 (09:07→21:24)
--- NOTE | 2018-04-25 09:46 | PN ---
DATE SEEN: 04/25/2018 HISTORY: Ms. Salas is an 82-year-old resident of [facility] who was admitted on 04/23/2018 because of increasing dyspnea and cough. She was seen in [facility] and admitted because of the pneumonia. On admission, she was wheezing, short of breath. She had rhonchi with decreased breath sounds and required oxygen. The patient was started on IV Levaquin, IV steroid, and respiratory therapy treatments. She has been stable. PHYSICAL EXAMINATION: GENERAL: She is alert, comfortable, and is able to answer questions appropriately. She does have mild cognitive deficits. VITAL SIGNS: Blood pressure 156/90, pulse 100 and regular, respirations 18, O2 saturation 90% on 2 L nasal cannula oxygen, temp 97.8. Weight 230 pounds, this is down from 235 pounds on admission. HEENT: Showed her mouth to be dry. LUNGS: Expiratory wheezes bilaterally. There are diminished breath sounds and coarse rales at the right base. HEART: Regular without murmur or gallop heard. ABDOMEN: Obese, soft, and nontender. EXTREMITIES: Showed 1+ pitting edema to the lower tibias. LABORATORY DATA: White count yesterday 19.4 with normal electrolytes, elevated glucose. Troponin less than 0.17. BNP 1,499. ASSESSMENT: 1. Right lower lobe pneumonia. 2. Asthma or reactive airways disease. 3. Congestive heart failure. 4. Chronic essential hypertension. 5. Depression. 6. Mild cognitive deficits. PLAN: We will continue her IV Levaquin. Add oral Augmentin today. Continue her respiratory therapy treatments. I will convert her from IV to oral steroid and recheck chest x-ray as well as labs tomorrow morning. We will continue to provide palliative care measures for her underlying congestive heart failure, respiratory difficulty, ambulatory difficulties, and her cognitive deficits. /[id number] JOSELO/APRILL
[2018-04-25] MEDS: Enoxaparin 30 MG/0.3 ML Syringe SUBCUT SCH (14:21)
[2018-04-26] MEDS: Albuterol/Ipratropium 3.0-0.5 MG/3 ML Neb Soln NEB SCH ×4 (07:04→20:29)
[2018-04-26] MEDS: predniSONE 10 MG Tab PO SCH ×2 (09:09→20:29)
[2018-04-26] MEDS: Furosemide 40 MG Tab PO SCH ×2 (09:09→13:46)
[2018-04-26] MEDS: Amoxicillin/Clavulanate K 875-125 MG Tab PO SCH ×2 (09:09→20:29)
[2018-04-26] MEDS: FLUoxetine 10 MG Cap PO SCH (09:10)
[2018-04-26] MEDS: Lisinopril 10 MG Tab PO SCH (09:10)
[2018-04-26] MEDS: Carboxymethylcellulose Sodium 0.5% Ophth Soln 15 ML Bottle EYEBOTH SCH ×2 (09:10→20:29)
[2018-04-26] MEDS: Metoprolol Succinate 50 MG Tab.ER PO SCH (09:11)
[2018-04-26] MEDS: Acetaminophen 500 MG Tab PO SCH ×2 (09:12→20:30)
[2018-04-26] MEDS: traMADol 50 MG Tab PO SCH ×3 (09:15→20:31)
--- NOTE | 2018-04-26 09:38 | PN ---
DATE SEEN: 04/26/2018 HISTORY: Marissa is an 82-year-old resident of [facility] with a history of asthma, COPD, CHF, and chronic and mild cognitive deficits. The patient was admitted on 04/23/2018 because of respiratory distress after being seen at [facility]. The patient's admission white count was 19,400, hemoglobin 13.6, and creatinine 0.9. The patient is examined this morning in her wheelchair. She is alert and in good spirits, currently comfortable. PHYSICAL EXAMINATION: VITAL SIGNS: Blood pressure 152/78, pulse 98, temperature 98.1, O2 saturation 96% on 1.5 L nasal cannula oxygen. SKIN: Anicteric. Warm and dry without rash. HEENT: Mouth is dry. LUNGS: Have rales at the right base. Expiratory wheezes bilaterally. HEART: Regular without murmur or gallop heard. ABDOMEN: Obese, soft, nontender. No masses. EXTREMITIES: Show 1+ edema at the feet. LABORATORY DATA: Accu-Chek last evening 173. Today's labs pending. ASSESSMENT: 1. Acute right lower lobe pneumonia. 2. Underlying chronic obstructive pulmonary disease with reactive airway disease. 3. Chronic congestive heart failure. 4. Mild cognitive deficits. 5. Longstanding ambulatory difficulty. PLAN: We will continue her IV Levaquin. I have added Augmentin orally. We will repeat her chest x-ray today and follow up her labs. We will continue to provide palliative care measures for her underlying cognitive deficits, CHF, widespread osteoarthritis, and ambulatory deficiency. I anticipate another 24-48 hours of acute care hospitalization followed by return to [facility] upon discharge. /[id number] JOSELO/APRILL
[2018-04-26] MEDS: Sodium Chloride 0.9% 10 ML Syringe FLUSH PRN ×2 (13:51→15:16)
[2018-04-26] MEDS: Enoxaparin 30 MG/0.3 ML Syringe SUBCUT SCH (13:52)
[2018-04-26] MEDS ORDERED: Levofloxacin/Dextrose 5%-Water 150 ML IV SCH (14:00)
[2018-04-27] MEDS: Albuterol/Ipratropium 3.0-0.5 MG/3 ML Neb Soln NEB SCH ×4 (07:31→20:09)
[2018-04-27] MEDS: Amoxicillin/Clavulanate K 875-125 MG Tab PO SCH ×2 (08:30→20:09)
[2018-04-27] MEDS: Furosemide 40 MG Tab PO SCH ×2 (08:30→13:41)
[2018-04-27] MEDS: Lisinopril 10 MG Tab PO SCH (09:26)
[2018-04-27] MEDS: predniSONE 10 MG Tab PO SCH ×2 (09:26→20:09)
[2018-04-27] MEDS: Metoprolol Succinate 50 MG Tab.ER PO SCH (09:27)
[2018-04-27] MEDS: FLUoxetine 10 MG Cap PO SCH (09:27)
[2018-04-27] MEDS: Carboxymethylcellulose Sodium 0.5% Ophth Soln 15 ML Bottle EYEBOTH SCH ×2 (09:27→20:09)
[2018-04-27] MEDS: Acetaminophen 500 MG Tab PO SCH ×2 (10:00→20:09)
[2018-04-27] MEDS: traMADol 50 MG Tab PO SCH ×3 (10:03→20:09)
[2018-04-27] MEDS ORDERED: cefTRIAXone 1 GM Vial IVPUSH SCH (11:00)
[2018-04-27] MEDS ORDERED: cefTRIAXone 1 GM in Sodium Chloride 0.9% 50 ML IV SCH (11:00)
--- NOTE | 2018-04-27 12:15 | PN ---
DATE SEEN: 04/27/2018 HISTORY: Marissa is an 82-year-old resident of [facility] who was admitted with pneumonia and respiratory distress. She had been treated with IV Levaquin yesterday. Augmentin was added, and a repeat chest x-ray was done. She feels well and is anxious to return to [facility]. PHYSICAL EXAMINATION: GENERAL: She is examined sitting in her wheelchair. VITAL SIGNS: Blood pressure 128/52, pulse 75, temp 98.1, respirations 20, O2 saturation 95% on 1.5 L nasal cannula oxygen. Weight 231 pounds 12 ounces, this is down 3 pounds from admission. HEENT: Shows her mouth to be dry. LUNGS: Persistent rales at the left lower lung field. Right side is clear. HEART: Regular without murmur or gallop. ABDOMEN: Obese, soft, nontender. EXTREMITIES: Show trace edema at the malleoli. LABORATORY DATA: White count yesterday 20,000. Electrolytes normal. Creatinine 1.0. BNP 2378. Repeat chest x-ray showed persistent infiltrate. ASSESSMENT: 1. Bilateral perihilar pneumonia. 2. Elevated BNP but without clinical congestive heart failure. PLAN: We will continue her oral Augmentin. We will add Rocephin 1 g IV for better broader gram-negative coverage. Anticipate return to [facility] within 24 to 48 hours. /[id number] RO/MODL
[2018-04-27] MEDS: Sodium Chloride 0.9% 10 ML Syringe FLUSH PRN (13:14)
[2018-04-27] MEDS: Enoxaparin 30 MG/0.3 ML Syringe SUBCUT SCH (14:42)
[2018-04-28] MEDS: Albuterol/Ipratropium 3.0-0.5 MG/3 ML Neb Soln NEB SCH ×2 (07:16→10:49)
[2018-04-28] MEDS: Amoxicillin/Clavulanate K 875-125 MG Tab PO SCH (08:48)
[2018-04-28] MEDS: FLUoxetine 10 MG Cap PO SCH (08:49)
[2018-04-28] MEDS: Carboxymethylcellulose Sodium 0.5% Ophth Soln 15 ML Bottle EYEBOTH SCH (08:49)
[2018-04-28] MEDS: predniSONE 10 MG Tab PO SCH (08:49)
[2018-04-28] MEDS: Metoprolol Succinate 50 MG Tab.ER PO SCH (08:50)
[2018-04-28] MEDS: Acetaminophen 500 MG Tab PO SCH (08:50)
[2018-04-28 08:51] VITALS: BP 146/72
[2018-04-28] MEDS ORDERED: Furosemide 40 MG Tab PO SCH (09:00)
[2018-04-28] MEDS ORDERED: Lisinopril 20 MG Tab PO SCH (09:00)
--- NOTE | 2018-04-28 09:58 | DISCH ---
DISCHARGE DATE: 04/28/2018 PRIMARY FINAL DIAGNOSIS: Left upper lobe pneumonia. OTHER DIAGNOSES: Chronic essential hypertension, mild cognitive deficits, generalized weakness with immobility and confinement to a wheelchair. OPERATIONS: None. COMPLICATIONS: None. SUMMARY: Ms. Salas is an 82-year-old resident of [facility] with the above medical problems, who came in because of wheezing and shortness of breath. She has a history of asthma, of reactive airways disease. She was seen in the clinic at [facility] and suspected to have pneumonia and sent over for admission. On arrival, she was afebrile, blood pressure 141/80, pulse 87, respirations 22. She had audible wheezing and rales in the left mid lung field. Abdomen was normal, and extremities showed generalized weakness and inability to walk that was longstanding. Admission labs showed a white count of 19,400 with 96 segs, 3 lymphs, 1 mono. Creatinine 0.9, glucose 173. Troponin less than 0.17. She was started on IV antibiotics and respiratory therapy treatments. She slowly improved and was converted to oral Augmentin. A Followup chest x-ray was done showing bilateral perihilar infiltrates. An echocardiogram was done and showed a hyperdynamic left ventricle with an ejection fraction of 60% and mild diastolic dysfunction. By 04/28/2018, she was anxious for discharge. She is sent back to [facility] to continue medications as follows. DISCHARGE MEDICATIONS: 1. Tramadol 50 mg t.i.d. p.r.n. pain. 2. Milk of magnesia p.r.n. nausea. 3. DuoNeb t.i.d. p.r.n. 4. Zostrix cream t.i.d. p.r.n. 5. Senokot S 2 tabs daily. 6. Prednisone 10 mg b.i.d. for 1 more week then 10 mg daily for I week and stop. 7. Nystatin topical powder p.r.n. 8. Metoprolol succinate 50 mg p.o. daily. 9. Lisinopril 20 mg p.o. daily. 10.Guaifenesin cough syrup p.r.n. 11.Furosemide 40 mg daily. 12.Fluoxetine 10 mg daily. 13.Artificial Tears p.r.n. 14.Augmentin 875 mg b.i.d. x1 week. 15.Tylenol p.r.n. FOLLOWUP: She will have routine followup care at the custodial per Dr. Starkey, and she is to call should there be questions or problems prior to that visit. /[id number] JOSELO/KIMBERLY
[2018-04-28] MEDS ORDERED: cefTRIAXone 1 GM Vial IVPUSH SCH (13:00)
== END 2018-04-28 12:44 | disposition home or self-care (01) | DRG 194 ==
LOC: FB.MS 13:23
PROVIDERS: ADMIT Family Medicine; ATTEND Family Medicine
DX: J18.1 Lobar pneumonia, unspecified organism (principal); J44.0 Chronic obstructive pulmonary disease with (acute) lower respiratory infection; J45.901 Unspecified asthma with (acute) exacerbation; I48.92 Unspecified atrial flutter; F32.1 Major depressive disorder, single episode, moderate; Z51.5 Encounter for palliative care; I50.9 Heart failure, unspecified; Z66 Do not resuscitate; F70 Mild intellectual disabilities; M19.90 Unspecified osteoarthritis, unspecified site; Z99.3 Dependence on wheelchair; G31.84 Mild cognitive impairment of uncertain or unknown etiology; I11.0 Hypertensive heart disease with heart failure; E78.5 Hyperlipidemia, unspecified; Z85.828 Personal history of other malignant neoplasm of skin; Z87.01 Personal history of pneumonia (recurrent); R32 Unspecified urinary incontinence; M25.519 Pain in unspecified shoulder; Z79.52 Long term (current) use of systemic steroids
CPT/HCPCS: 36415; 71046; 80048; 80053; 82962; 83880; 84484; 85025; 87040; 93005; 93306; 94640; A9270-GY; J0696; J1650; J1940; J1956; J2930; J7620-GY

== ENCOUNTER 2018-07-29 12:13 | Emergency (ER) | payer MEDICARE, MEDICAID ==
[2018-07-29] MEDS ORDERED: Albuterol/Ipratropium 3.0-0.5 MG/3 ML Neb Soln NEB ONE (13:35)
--- NOTE | 2018-07-29 13:36 | EDM.PDOC ---
ED HPI GENERAL MEDICAL PROBLEM - General Chief Complaint: Respiratory Problem Stated Complaint: POSS PNEUNOMIA Time Seen by Provider: 07/29/18 12:13 Source of Information: Reports: Patient, Other (caregiver) History Limitations: Reports: Physical Impairment - History of Present Illness INITIAL COMMENTS - FREE TEXT/NARRATIVE: 82 y.o.w.f with multiple med issues, including COPD, came from the [facility] to the ED because of SOB, cough and fever. Pt is wheelchair bound, an has a sedentary live style. Pt is a poor historian, no family was present. Pt had occ a dry cough. No other acute medical issues. BP 132/67 RR 22 Pulse ox 90 % on RA Temp 36.8 Pulse 82 Onset Date: 07/28/18 Onset Time: 08:00 Duration: Hour(s):, Day(s):, Intermittent Location: Reports: Chest Severity: Mild Improves with: Reports: Rest Worsens with: Reports: Movement Context: Reports: Other Associated Symptoms: Reports: Cough - Related Data Allergies Allergy/AdvReac Type Severity Reaction Status Date / Time No Known Allergies Allergy Verified 07/29/18 12:34 Home Meds: Home Meds Acetaminophen [Tylenol Extra Strength] 500 mg PO BID 05/07/15 [History] Ipratropium/Albuterol Sulfate [Iprat-Albut 0.5-3(2.5) MG/3 ML] 3 ml IH ASDIRECTED PRN 05/07/15 [History] Acetaminophen 650 mg PO Q4H PRN 08/20/16 [History] FLUoxetine [PROzac] 10 mg PO DAILY 08/20/16 [History] Metoprolol Succinate [Toprol XL] 50 mg PO DAILY 08/20/16 [History] Nystatin 1 each PO BID PRN 08/20/16 [History] guaiFENesin [Tussin] 10 ml PO Q4H PRN 08/20/16 [History] traMADol [Ultram] 50 mg PO TID 08/20/16 [History] Capsaicin [Zostrix 0.025% Crm] 1 applic TP TID 04/23/18 [History] Magnesium Hydroxide [Milk of Magnesia] 30 ml PO DAILY PRN 04/23/18 [History] Sennosides/Docusate Sodium [Senna-S] 2 tab PO DAILY 04/23/18 [History] Furosemide [Lasix] 40 mg PO DAILY tablet 04/28/18 [Rx] Lisinopril [Prinivil] 20 mg PO DAILY #30 tablet 04/28/18 [Rx] Bisacodyl [Dulcolax] 10 mg RC Q3D PRN 07/29/18 [History] Ciprofloxacin HCl [Cipro] 500 mg PO BID #20 tablet 07/29/18 [Rx] Dextran 70/Hypromellose [Artificial Tears] 1 each EYEBOTH BID 07/29/18 [History] Levofloxacin [Levaquin] 750 mg PO Q2D 07/29/18 [History] Past Medical History Cardiovascular History: Reports: High Cholesterol, Hypertension, Syncope Other Cardiovascular History: Hyperlipidemia Respiratory History: Reports: Asthma, COPD, Pneumonia, Recurrent, SOB Genitourinary History: Reports: Urinary Incontinence Musculoskeletal History: Reports: Osteoarthritis Other Musculoskeletal History: CHRONIC SHOULDER PAIN, abnormality of gait, nonambulatory Neurological History: Reports: Other (See Below) Other Neuro History: Moderate intellectual disabilities Psychiatric History: Reports: Depression, Other (See Below) Other Psychiatric History: Moderate intellectual disabilities Hematologic History: Reports: Anemia Immunologic History: Reports: Other (See Below) Other Immunologic History: hx of sepsis Oncologic (Cancer) History: Reports: Other (See Below) Other Oncologic History: Basal cell carcinoma of left forehead - Infectious Disease History Infectious Disease History: Reports: Other (See Below) Other Infectious Disease History: HAS HX OF SEPSIS. - Past Surgical History Head Surgeries/Procedures: Reports: None HEENT Surgical History: Reports: None GI Surgical History: Reports: None Endocrine Surgical History: Reports: None Oncologic Surgical History: Reports: None Dermatological Surgical History: Reports: None Social & Family History - Family History Other Oncologic Family History: Father had an unknown type of cancer - Tobacco Use Smoking Status *Q: Never Smoker Second Hand Smoke Exposure: No - Caffeine Use Caffeine Use: Reports: Soda - Recreational Drug Use Recreational Drug Use: No ED ROS GENERAL - Review of Systems Review Of Systems: Unable To Obtain (poor historian) ED EXAM, GENERAL - Physical Exam Exam: See Below Exam Limited By: Physical Impairment General Appearance: Alert, WD/WN, Mild Distress, Obese Eye Exam: Bilateral Eye: Normal Inspection Ears: Normal External Exam Ear Exam: Bilateral Ear: Auricle Normal Nose: Normal Inspection Throat/Mouth: Normal Inspection, Normal Lips, Normal Voice, No Airway Compromise Head: Atraumatic, Normocephalic Neck: Normal Inspection, Supple, Non-Tender, Full Range of Motion Respiratory/Chest: No Respiratory Distress, No Accessory Muscle Use, Rhonchi, Wheezing Cardiovascular: Normal Peripheral Pulses, Regular Rate, Rhythm, No Edema Peripheral Pulses: 1+: Brachial (R) GI/Abdominal: Normal Bowel Sounds, Soft, Non-Tender, No Organomegaly, No Distention, No Abnormal Bruit, No Mass, Pelvis Stable (Female) Exam: Deferred Rectal (Female) Exam: Deferred Back Exam: Normal Inspection, Full Range of Motion Extremities: Normal Inspection, Normal Range of Motion, Non-Tender, No Pedal Edema, Normal Capillary Refill Neurological: Alert, Oriented, CN II-XII Intact, Normal Cognition, Abnormal Gait (wheelchair bound) Psychiatric: Normal Affect, Normal Mood Skin Exam: Warm, Dry, Intact, Normal Color, No Rash Lymphatic: No Adenopathy Course - Vital Signs Text/Narrative:: 82 y.o.w.f with multiple med issues, including COPD, came from the [facility] to the ED because of SOB, cough and fever. Pt is wheelchair bound, an has a sedentary live style. Pt is a poor historian, no family was present. Pt had occ a dry cough. No other acute medical issues. BP 132/67 RR 22 Pulse ox 90 % on RA Temp 36.8 Pulse 82 PE: Morbid obese w f with a pulks eox of 90m rhonchi, no wheezing Imaging: CXR 2 view: NAD as per RAD labs: CBC nl BMP Na 131, BUN 21 Impression: Acute Bronchitis Tx: Duoneb, Alb neb, Cipro Reexam: Improved, Pulse on D/C 93% on RA Plan: D/C with instructions Last Recorded V/S: Last Vital Signs Temp 37.0 C 07/29/18 17:20 Pulse 86 07/29/18 17:20 Resp 18 07/29/18 17:20 BP 126/88 07/29/18 17:20 Pulse Ox 93 L 07/29/18 17:20 - Orders/Labs/Meds Orders: Active Orders 24 hr Category Date Time Status RT Aerosol Therapy [RC] ASDIRECTED Care 07/29/18 13:35 Active RT Aerosol Therapy [RC] ASDIRECTED Care 07/29/18 16:28 Active CXR [Chest 1V Frontal] [CR] Stat Exams 07/29/18 13:34 Taken CXR [Chest 2V] [CR] Stat Exams 07/29/18 15:31 Taken Labs: Laboratory Tests 07/29/18 07/29/18 07/29/18 Range/Units 13:45 13:45 13:45 WBC 8.5 (4.5-12.0) X10-3/uL RBC 3.99 (3.23-5.20) x10(6)uL Hgb 12.6 (11.5-15.5) g/dL Hct 37.4 (30.0-51.3) % MCV 93.6 (80-96) fL MCH 31.5 (27.7-33.6) pg MCHC 33.7 (32.2-35.4) g/dL RDW 16.4 H (11.5-15.5) % Plt Count 271 (125-369) X10(3)uL MPV 7.8 (7.4-10.4) fL Add Manual Diff Yes Neutrophils % (Manual) 83 H (46-82) % Lymphocytes % (Manual) 8 L (13-37) % Monocytes % (Manual) 7 (4-12) % Eosinophils % (Manual) 2 (0-5) % Anisocytosis Few Sodium 131 L (135-145) mmol/L Potassium 4.3 (3.5-5.3) mmol/L Chloride 95 L (100-110) mmol/L Carbon Dioxide 33 H (21-32) mmol/L BUN 21 H (7-18) mg/dL Creatinine 0.9 (0.55-1.02) mg/dL Est Cr Clr Drug Dosing 42.33 mL/min Estimated GFR (MDRD) > 60 (>60) BUN/Creatinine Ratio 23.3 H (9-20) Glucose 101 (80-116) mg/dL Lactic Acid 0.9 (0.4-2.2) mmol/L Calcium 8.6 (8.6-10.2) mg/dL Meds: Medications Discontinued Medications Generic Name Dose Route Start Last Admin Trade Name Freq PRN Reason Stop Dose Admin Albuterol 2.5 mg 07/29/18 16:28 07/29/18 16:31 Proventil Neb Soln NEB 07/29/18 16:29 2.5 mg ONETIME ONE Administration Albuterol/Ipratropium 3 ml 07/29/18 13:35 07/29/18 13:57 Duoneb 3.0-0.5 Mg/3 Ml NEB 07/29/18 13:36 3 ml ONETIME ONE Administration Ciprofloxacin 500 mg 07/29/18 16:25 07/29/18 16:31 Ciprofloxacin Hcl PO 07/29/18 16:26 500 mg ONETIME ONE Administration Departure - Departure Time of Disposition: 16:28 Disposition: Home, Self-Care 01 Condition: Good Clinical Impression: Bronchitis - Discharge Information Prescriptions: Ciprofloxacin HCl [Cipro] 500 mg PO BID #20 tablet Instructions: Acute Bronchitis, Adult, [id number] Referrals: Darren Oro MD [Primary Care Provider] - Forms: ED Department Discharge Additional Instructions: Please take the Abx as recommended, please f/u come back your symptoms worsen acutely - My Orders Last 24 Hours: My Active Orders 07/29/18 13:34 CXR [Chest 1V Frontal] [CR] Stat 07/29/18 13:35 RT Aerosol Therapy [RC] ASDIRECTED 07/29/18 15:31 CXR [Chest 2V] [CR] Stat 07/29/18 16:28 RT Aerosol Therapy [RC] ASDIRECTED - Assessment/Plan Last 24 Hours: My Active Orders 07/29/18 13:34 CXR [Chest 1V Frontal] [CR] Stat 07/29/18 13:35 RT Aerosol Therapy [RC] ASDIRECTED 07/29/18 15:31 CXR [Chest 2V] [CR] Stat 07/29/18 16:28 RT Aerosol Therapy [RC] ASDIRECTED
[2018-07-29] MEDS ORDERED: Ciprofloxacin 500 MG Tab PO ONE (16:25)
[2018-07-29] MEDS ORDERED: Albuterol 0.083% 2.5 MG/3 ML Neb Soln NEB ONE (16:28)
[2018-07-29 17:46] VITALS: BP 126/88
--- NOTE | 2018-07-30 08:19 | CR ---
INDICATION: Cough. CHEST: An AP upright view of the chest was obtained 07/29/18 and compared with 04/26/18 and 05/07/15, revealing a linear density at the lower mid lung field on the left peripherally, which may represent a linear atelectatic strand and/ or fibrosis. No definite active infiltrate or effusion was seen, although minimal patchy pneumonia is difficult to entirely exclude with this poor inspiration, due to somewhat heavy markings at the lung bases. However, no consolidating pneumonia or effusion was seen. The heart is prominent but not grossly enlarged. The aorta is tortuous and calcified in the arch and descending portion. A dextroconvex scoliosis of the upper thoracic spine is suggested of mild degree. Degenerative changes are noted in shoulder joints. IMPRESSION: No definite acute process but difficult to exclude minimal patchy bronchopneumonia at the lung bases. The lungs do appear to be less congested than on the previous examination, which may represent resolving pulmonary vascular congestion and/or resolving or resolved interstitial pneumonitis. MTDD
--- NOTE | 2018-07-30 08:34 | CR ---
INDICATION: Fever and cough. CHEST: Two AP views and a lateral view of the chest were obtained in an attempt to obtain a better inspiration. No significant increase in inspiratory effort was identified. There is again no consolidating pneumonia or effusion identified. IMPRESSION: 1. No change and no definite acute process but difficult to entirely exclude minimal patchy bronchopneumonia and some minimal linear atelectasis at medial right lung base and lower middle lung field on the left. 2. ASHD. Report was called to Dr. Breaux at 1610 hours on 07/29/18. MTDD
== END 2018-07-29 17:20 | disposition home or self-care (01) ==
LOC: FB.ED 12:13
DX: J20.9 Acute bronchitis, unspecified (principal); J44.9 Chronic obstructive pulmonary disease, unspecified; I10 Essential (primary) hypertension; Z79.899 Other long term (current) drug therapy
CPT/HCPCS: 36415; 71045; 71046; 80048; 83605; 85025; 94640; 99283; A9270; J7620-GY

== ENCOUNTER 2019-10-22 15:44 | Emergency (ER) | payer MEDICARE, MEDICAID ==
[2019-10-22] MEDS ORDERED: Furosemide 40 MG/4 ML VIAL IVPUSH ONE (16:58)
[2019-10-22] MEDS ORDERED: Albuterol/Ipratropium 3.0-0.5 MG/3 ML Neb Soln NEB ONE (16:58)
--- NOTE | 2019-10-22 17:54 | EDM.PDOC ---
ED HPI GENERAL MEDICAL PROBLEM - General Chief Complaint: Respiratory Problem Stated Complaint: FROM CLINIC Time Seen by Provider: 10/22/19 16:20 Source of Information: Reports: Patient, Old Records History Limitations: Reports: No Limitations - History of Present Illness INITIAL COMMENTS - FREE TEXT/NARRATIVE: Marissa [facility] due to SOB,cough and lethargy. Has been treated at [facility] by two doses of Antibiotics,with minimal improvement. She has a h/o CHF,COPD that are stable. No fever is reported,and she does not endorse any chest pain. She ahd a COVID test on 10/18 that was NEG - Related Data Allergies Allergy/AdvReac Type Severity Reaction Status Date / Time No Known Allergies Allergy Verified 07/29/18 12:34 Home Meds: Home Meds Acetaminophen [Tylenol Extra Strength] 500 mg PO BID 05/07/15 [History] Ipratropium/Albuterol Sulfate [Iprat-Albut 0.5-3(2.5) MG/3 ML] 3 ml IH ASDIRECTED PRN 05/07/15 [History] Acetaminophen 650 mg PO Q4H PRN 08/20/16 [History] FLUoxetine [PROzac] 10 mg PO DAILY 08/20/16 [History] Metoprolol Succinate [Toprol XL] 50 mg PO DAILY 08/20/16 [History] Nystatin 1 each PO BID PRN 08/20/16 [History] guaiFENesin [Tussin] 10 ml PO Q4H PRN 08/20/16 [History] traMADol [Ultram] 50 mg PO TID 08/20/16 [History] Capsaicin [Zostrix 0.025% Crm] 1 applic TP TID 04/23/18 [History] Magnesium Hydroxide [Milk of Magnesia] 30 ml PO DAILY PRN 04/23/18 [History] Sennosides/Docusate Sodium [Senna-S] 2 tab PO DAILY 04/23/18 [History] Furosemide [Lasix] 40 mg PO DAILY tablet 04/28/18 [Rx] lisinopriL [Prinivil] 20 mg PO DAILY #30 tablet 04/28/18 [Rx] Ciprofloxacin HCl [Cipro] 500 mg PO BID #20 tablet 07/29/18 [Rx] Dextran 70/Hypromellose [Artificial Tears] 1 each EYEBOTH BID 07/29/18 [History] bisacodyL [Dulcolax] 10 mg RC Q3D PRN 07/29/18 [History] levoFLOXacin [Levaquin] 750 mg PO Q2D 07/29/18 [History] Past Medical History Cardiovascular History: Reports: High Cholesterol, Hypertension, Syncope Other Cardiovascular History: Hyperlipidemia Respiratory History: Reports: Asthma, COPD, Pneumonia, Recurrent, SOB Genitourinary History: Reports: Urinary Incontinence Musculoskeletal History: Reports: Osteoarthritis Other Musculoskeletal History: CHRONIC SHOULDER PAIN, abnormality of gait, nonambulatory Neurological History: Reports: Other (See Below) Other Neuro History: Moderate intellectual disabilities Psychiatric History: Reports: Depression, Other (See Below) Other Psychiatric History: Moderate intellectual disabilities Hematologic History: Reports: Anemia Immunologic History: Reports: Other (See Below) Other Immunologic History: hx of sepsis Oncologic (Cancer) History: Reports: Other (See Below) Other Oncologic History: Basal cell carcinoma of left forehead - Infectious Disease History Infectious Disease History: Reports: Other (See Below) Other Infectious Disease History: HAS HX OF SEPSIS. - Past Surgical History Head Surgeries/Procedures: Reports: None HEENT Surgical History: Reports: None GI Surgical History: Reports: None Endocrine Surgical History: Reports: None Oncologic Surgical History: Reports: None Dermatological Surgical History: Reports: None Social & Family History - Family History Other Oncologic Family History: Father had an unknown type of cancer - Caffeine Use Caffeine Use: Reports: Soda ED ROS GENERAL - Review of Systems Review Of Systems: Comprehensive ROS is negative, except as noted in HPI. ED EXAM, GENERAL - Physical Exam Exam: See Below Exam Limited By: No Limitations General Appearance: Alert, WD/WN, Mild Distress Ear Exam: Bilateral Ear: Auricle Normal, Canal Normal, TM normal Nose: Normal Inspection Throat/Mouth: Normal Inspection Head: Atraumatic Neck: Normal Inspection Respiratory/Chest: Rales, Wheezing Cardiovascular: Normal Peripheral Pulses GI/Abdominal: Normal Bowel Sounds Extremities: Pedal Edema Neurological: Alert, Oriented Psychiatric: Normal Affect Skin Exam: Warm EKG INTERPRETATION Rhythm: NSR Course - Orders/Labs/Meds Orders: Active Orders 24 hr Category Date Time Status EKG Documentation Completion [RC] ASDIRECTED Care 10/22/19 16:08 Active RT Aerosol Therapy [RC] ASDIRECTED Care 10/22/19 16:58 Active Chest 2V [CR] Stat Exams 10/22/19 16:08 Taken CORONAVIRUS COVID-19, JAHAIRA Stat Lab 10/22/19 16:08 Ordered EKG 12 Lead [EK] Stat Ther 10/22/19 16:07 Ordered Labs: Laboratory Tests 10/22/19 10/22/19 10/22/19 Range/Units 16:15 16:15 16:15 WBC 17.5 H (4.5-12.0) X10-3/uL RBC 3.77 (3.23-5.20) x10(6)uL Hgb 10.5 L (11.5-15.5) g/dL Hct 33.6 (30.0-51.3) % MCV 89.1 (80-96) fL MCH 27.9 (27.7-33.6) pg MCHC 31.4 L (32.2-35.4) g/dL RDW 15.5 (11.5-15.5) % Plt Count 525 H (125-369) X10(3)uL MPV 6.9 L (7.4-10.4) fL Add Manual Diff Yes Neutrophils % (Manual) 96 H (46-82) % Lymphocytes % (Manual) 4 L (13-37) % Sodium 134 L (135-145) mmol/L Potassium 5.3 D (3.5-5.3) mmol/L Chloride 94 L (100-110) mmol/L Carbon Dioxide 40 H* (21-32) mmol/L BUN 31 H D (7-18) mg/dL Creatinine 1.1 H (0.55-1.02) mg/dL Est Cr Clr Drug Dosing TNP Estimated GFR (MDRD) 48 L (>60) BUN/Creatinine Ratio 28.2 H (9-20) Glucose 125 H (80-116) mg/dL Calcium 9.1 (8.6-10.2) mg/dL Total Bilirubin 0.2 (0.1-1.3) mg/dL AST 27 H D (5-25) IU/L ALT 14 D (12-36) U/L Alkaline Phosphatase 125 H (56-112) IU/L Troponin I 8.9 (4.0-60.3) pg/mL C-Reactive Protein (0.5-0.9) mg/dL NT-Pro-B Natriuret Pep 6567 H* (<=450) pg/mL Total Protein 8.3 H (6.0-8.0) g/dL Albumin 3.2 (3.2-4.6) g/dL Globulin 5.1 g/dL Albumin/Globulin Ratio 0.6 10/22/19 Range/Units 16:25 WBC (4.5-12.0) X10-3/uL RBC (3.23-5.20) x10(6)uL Hgb (11.5-15.5) g/dL Hct (30.0-51.3) % MCV (80-96) fL MCH (27.7-33.6) pg MCHC (32.2-35.4) g/dL RDW (11.5-15.5) % Plt Count (125-369) X10(3)uL MPV (7.4-10.4) fL Add Manual Diff Neutrophils % (Manual) (46-82) % Lymphocytes % (Manual) (13-37) % Sodium (135-145) mmol/L Potassium (3.5-5.3) mmol/L Chloride (100-110) mmol/L Carbon Dioxide (21-32) mmol/L BUN (7-18) mg/dL Creatinine (0.55-1.02) mg/dL Est Cr Clr Drug Dosing Estimated GFR (MDRD) (>60) BUN/Creatinine Ratio (9-20) Glucose (80-116) mg/dL Calcium (8.6-10.2) mg/dL Total Bilirubin (0.1-1.3) mg/dL AST (5-25) IU/L ALT (12-36) U/L Alkaline Phosphatase (56-112) IU/L Troponin I (4.0-60.3) pg/mL C-Reactive Protein 5.2 H* (0.5-0.9) mg/dL NT-Pro-B Natriuret Pep (<=450) pg/mL Total Protein (6.0-8.0) g/dL Albumin (3.2-4.6) g/dL Globulin g/dL Albumin/Globulin Ratio Meds: Medications Discontinued Medications Generic Name Dose Route Start Last Admin Trade Name Freq PRN Reason Stop Dose Admin Albuterol/Ipratropium 3 ml 10/22/19 16:58 10/22/19 17:22 Duoneb 3.0-0.5 Mg/3 Ml NEB 10/22/19 16:59 3 ml ONETIME ONE Administration Furosemide 80 mg 10/22/19 16:58 10/22/19 17:25 Lasix IVPUSH 10/22/19 16:59 80 mg NOW ONE Administration Departure - Departure Time of Disposition: 17:52 Disposition: DC/Tfer to SNF 03 Condition: Good Clinical Impression: Congestive heart failure - Discharge Information - Problem List & Annotations (1) Congestive heart failure SNOMED Code(s): 12590586 Code(s): I50.9 - HEART FAILURE, UNSPECIFIED Status: Acute (2) HTN (hypertension) SNOMED Code(s): 25191087 Code(s): I10 - ESSENTIAL (PRIMARY) HYPERTENSION Status: Acute Qualifiers: Hypertension type: essential hypertension Qualified Code(s): I10 - Essential (primary) hypertension (3) COPD (chronic obstructive pulmonary disease) SNOMED Code(s): 03239516 Code(s): J44.9 - CHRONIC OBSTRUCTIVE PULMONARY DISEASE, UNSPECIFIED Status: Acute Qualifiers: COPD type: chronic bronchitis - Problem List Review Problem List Initiated/Reviewed/Updated: Yes - My Orders Last 24 Hours: My Active Orders 10/22/19 16:07 EKG 12 Lead [EK] Stat 10/22/19 16:08 EKG Documentation Completion [RC] ASDIRECTED Chest 2V [CR] Stat CORONAVIRUS COVID-19, JAHAIRA Stat 10/22/19 16:58 RT Aerosol Therapy [RC] ASDIRECTED - Assessment/Plan Last 24 Hours: My Active Orders 10/22/19 16:07 EKG 12 Lead [EK] Stat 10/22/19 16:08 EKG Documentation Completion [RC] ASDIRECTED Chest 2V [CR] Stat CORONAVIRUS COVID-19, JAHAIRA Stat 10/22/19 16:58 RT Aerosol Therapy [RC] ASDIRECTED Plan: She is on Home O2 at 2L. She got IV Lasix here(80mg) and Due neb. Her BP improved. Labs looked ok, except BNP that was in the 6000's. Will DC to the [place]. Increase Lasix to 40 mg BID until she sees her PCP.
[2019-10-23 00:10] VITALS: BP 154/85; PULSE 70
== END 2019-10-22 17:40 ==
LOC: FB.ED 15:44
DX: I11.0 Hypertensive heart disease with heart failure (principal); I50.9 Heart failure, unspecified; J44.9 Chronic obstructive pulmonary disease, unspecified; E78.5 Hyperlipidemia, unspecified; M19.90 Unspecified osteoarthritis, unspecified site; F32.9 Major depressive disorder, single episode, unspecified; Z79.899 Other long term (current) drug therapy
CPT/HCPCS: 36415; 71046; 80053; 83880; 84484; 85025; 86140; 93005; 93010; 94640; 96374; 99283; 99285-25; J1940; J7620-GY